=== PATIENT | male | born 1945 | race Caucasian/White ===

== ENCOUNTER 2024-01-12 02:06 | Inpatient (IN) | payer MEDICAID, OTHER ==
[2024-01-12] VITALS (10 sets, daily range): BP systolic 188; BP diastolic 87; PULSE 74–104; RESP 16–32; TEMP 98.1; O2SAT 90–100
[~2024-01-12] VITALS: Ht 167.6 cm; Wt 80.0 kg
[2024-01-12] MEDS: IPRATROPIUM BROM 0.5 MG/2.5ML INH SOL NEB ONE (02:46)
[2024-01-12 02:50] LABS: Basophils # (auto) 0.1 10 ^3/uL (0-0.2); Basophils % (auto) 0.8 % (0.0-2.0); Eosinophils # (auto) 0.8 10 ^3/uL (0-0.8); Eosinophils % (auto) 8.3 % (0.0-7.0); Hematocrit 49.1 % (41.0-53.0); Hemoglobin 16.1 g/dL (13.5-17.5); Lymphocytes # (auto) 1.7 10 ^3/uL (0.4-5.4); Lymphocytes % (auto) 17.5 % (10.0-50.0); Mean Corpuscular Hemoglobin 31.9 pg (28.0-32.0); Mean Corpuscular Hgb Conc. 32.9 g/dL (32.0-36.0); Monocytes # (auto) 0.9 10 ^3/uL (0-1.3); Monocytes % (auto) 9.9 % (0.0-12.0); Neutrophils % (auto) 63.5 % (37.0-80.0); Nucleated Red Blood Cells % 0.1 %; Red Blood Cells 5.06 10^6/uL (4.5-5.90); Red Cell Distribution Width 14.7 % (11.8-14.3); White Blood Cell 9.5 10^3/uL (4.4-10.8)
[2024-01-12] MEDS: methylPREDNISolone SOD SUCC 125 MG/2 ML VL IV ONE (03:02)
[2024-01-12 03:05] LABS: Alanine Aminotransferase 42 U/L (7-40); Albumin 4.1 g/dL (3.2-4.8); Alkaline Phosphatase 89 U/L (46-116); Anion Gap 4 (5-15); Aspartate Aminotransferase 49 U/L (13-40); BUN/Creatinine Ratio 11.6 (10.0-20.0); Blood Urea Nitrogen 18 mg/dL (9-23); Calcium 9.6 mg/dL (8.7-10.4); Carbon Dioxide 28 mmol/L (20-30); Chloride 109 mmol/L (98-107); Glucose 182 mg/dL (74-106); Potassium 4.1 mmol/L (3.5-5.1); Sodium 141 mmol/L (136-145)
[2024-01-12 03:06] LABS: Bilirubin, Total 0.4 mg/dL (0.2-1.0); Total Protein 6.6 g/dL (5.7-8.2)
[2024-01-12] MEDS ORDERED: MORPHINE SULFATE INJ 2 MG/ml SYRG IV PRN (04:45)
[2024-01-12] MEDS ORDERED: NITROGLYCERIN 0.4 MG SL TAB SL PRN (04:45)
[2024-01-12] MEDS ORDERED: DEXTROSE (50%) 50ML SYRG IV PRN (05:00)
[2024-01-12] MEDS ORDERED: HYDROcodone-ACET 5/325MG TAB PO PRN (05:00)
[2024-01-12] MEDS ORDERED: hydrALAZINE HCL 20 MG/ML VL IV PRN (05:00)
[2024-01-12] MEDS ORDERED: ACETAMINOPHEN 325 MG TAB PO PRN (05:00)
[2024-01-12] MEDS ORDERED: ONDANSETRON HCL 4 MG/2 ML VIAL IV PRN (05:00)
[2024-01-12] MEDS: FUROSEMIDE 40 MG/4 ML VIAL IV ONE (05:11)
[2024-01-12] MEDS: ATORVASTATIN 20 MG TAB PO SCH (05:12)
[2024-01-12 05:14] LABS: Prothrombin Time 10.6 sec (9.3-11.8)
[2024-01-12] MEDS: METOPROLOL TARTRATE 25 MG TAB PO SCH (05:19)
[2024-01-12] MEDS: HEPARIN SODIUM (PORCINE) 5000 UNITS/ML 1ML VIAL IV ONE (05:20)
[2024-01-12] MEDS: HEPARIN DRIP/D5W 100UNITS/ML 250 ML IV SCH ×2 (05:45→14:01)
[2024-01-12] MEDS: IPRATROPIUM BROM 0.5 MG/2.5ML INH SOL NEB SCH (06:12)
[2024-01-12] MEDS: LEVALBUTEROL HCL 1.25 MG/3 ML NEB NEB SCH (06:12)
[2024-01-12] MEDS: ACCU-CHEK COMFORT CURVE STRIP VI SCH (06:50)
[2024-01-12] MEDS: InsuLIN REG 1unit/0.01ml Soln (100units/ml) SC SCH (06:55)
[2024-01-12 07:58] LABS: Urine Bacteria None Seen /hpf (None Seen)
[2024-01-12 08:05] LABS: Urine Blood Negative /uL (Negative); Urine Clarity Clear (Clear); Urine Color Light-Yellow (Yellow); Urine Protein, UAD 1+ (Negative); Urine Specific Gravity 1.008 (1.001-1.035); Urine Urobilinogen Normal (Negative); Urine WBC <1 /hpf (0 - 3)
[2024-01-12] MEDS: PANTOPRAZOLE 40 MG/10 ML VIAL INJ IV SCH (10:53)
[2024-01-12 11:12] LABS: INR 1.04 (0.9-1.15); Partial Thromboplastin Time 36.1 SEC (24.5-34.5)
[2024-01-12] MEDS: ASPirin-EC 81 mg tab PO ONE (13:30)
[2024-01-12] MEDS: SODIUM CHLORIDE 0.9% 1,000 ML IV SCH (14:11)
[2024-01-12 20:34] LABS: INR 1.1 (0.9-1.15); Partial Thromboplastin Time 50.4 SEC (24.5-34.5); Prothrombin Time 11.6 sec (9.3-11.8)
[2024-01-13] VITALS (29 sets, daily range): BP systolic 111–157; BP diastolic 57–119; PULSE 75–102; RESP 15–35; TEMP 97–99; O2SAT 83–100
[2024-01-13 00:56] LABS: INR 1.1 (0.9-1.15); Prothrombin Time 11.6 sec (9.3-11.8)
[2024-01-13 01:02] LABS: Partial Thromboplastin Time 88.2 SEC (24.5-34.5)
[2024-01-13] MEDS: HEPARIN DRIP/D5W 100UNITS/ML 250 ML IV SCH ×2 (01:15→09:40)
[2024-01-13 08:08] LABS: Basophils # (auto) 0 10 ^3/uL (0-0.2); Basophils % (auto) 0.2 % (0.0-2.0); Eosinophils # (auto) 0 10 ^3/uL (0-0.8); Eosinophils % (auto) 0.2 % (0.0-7.0); Hematocrit 44.7 % (41.0-53.0); Hemoglobin 14.7 g/dL (13.5-17.5); Lymphocytes # (auto) 1.4 10 ^3/uL (0.4-5.4); Mean Corpuscular Hemoglobin 31.7 pg (28.0-32.0); Mean Corpuscular Hgb Conc. 32.9 g/dL (32.0-36.0); Mean Corpuscular Volume 96.6 fL (80.0-100.0); Monocytes # (auto) 1.6 10 ^3/uL (0-1.3); Monocytes % (auto) 10.3 % (0.0-12.0); Neutrophils # (auto) 12.7 10 ^3/uL (1.6-8.6); Neutrophils % (auto) 80.3 % (37.0-80.0); Red Blood Cells 4.62 10^6/uL (4.5-5.90); Red Cell Distribution Width 14.5 % (11.8-14.3); White Blood Cell 15.8 10^3/uL (4.4-10.8)
[2024-01-13 08:16] LABS: Chloride 107 mmol/L (98-107); Potassium 4.5 mmol/L (3.5-5.1); Sodium 141 mmol/L (136-145)
[2024-01-13 08:17] LABS: Anion Gap 7 (5-15); Calcium 9.1 mg/dL (8.5-10.1); Carbon Dioxide 27 mmol/L (20-30)
[2024-01-13 08:22] LABS: BUN/Creatinine Ratio 17.6 (10.0-20.0); Glucose 165 mg/dL (74-106)
[2024-01-13 08:24] LABS: Blood Urea Nitrogen 28 mg/dL (9-23)
[2024-01-13 09:10] LABS: INR 1.08 (0.9-1.15); Prothrombin Time 11.4 sec (9.3-11.8)
[2024-01-13 09:15] LABS: Partial Thromboplastin Time 82.6 SEC (24.5-34.5)
[2024-01-13] MEDS: ASPirin 81 mg TAB PO SCH (10:18)
[2024-01-13 14:55] LABS: INR 1.06 (0.9-1.15); Partial Thromboplastin Time 66.3 SEC (24.5-34.5); Prothrombin Time 11.2 sec (9.3-11.8)
[2024-01-13] MEDS: FUROSEMIDE 40 MG/4 ML VIAL IV SCH (17:10)
[2024-01-13 21:05] LABS: INR 1.07 (0.9-1.15); Prothrombin Time 11.3 sec (9.3-11.8)
[2024-01-13 21:09] LABS: Partial Thromboplastin Time 71.5 SEC (24.5-34.5)
[2024-01-14] VITALS (34 sets, daily range): BP systolic 94–149; BP diastolic 54–87; PULSE 80–143; RESP 10–34; TEMP 97.6–99.3; O2SAT 89–100
[2024-01-14 03:26] LABS: INR 1.08 (0.9-1.15); Prothrombin Time 11.4 sec (9.3-11.8)
[2024-01-14 03:29] LABS: Partial Thromboplastin Time 75.5 SEC (24.5-34.5)
[2024-01-14 05:32] LABS: Basophils # (auto) 0.1 10 ^3/uL (0-0.2); Basophils % (auto) 0.5 % (0.0-2.0); Eosinophils # (auto) 0.6 10 ^3/uL (0-0.8); Eosinophils % (auto) 4.4 % (0.0-7.0); Hematocrit 45.2 % (41.0-53.0); Hemoglobin 15.1 g/dL (13.5-17.5); Lymphocytes # (auto) 1.3 10 ^3/uL (0.4-5.4); Lymphocytes % (auto) 9.4 % (10.0-50.0); Mean Corpuscular Hemoglobin 32.3 pg (28.0-32.0); Mean Corpuscular Hgb Conc. 33.3 g/dL (32.0-36.0); Mean Corpuscular Volume 96.8 fL (80.0-100.0); Monocytes # (auto) 1.8 10 ^3/uL (0-1.3); Neutrophils # (auto) 10.1 10 ^3/uL (1.6-8.6); Neutrophils % (auto) 72.7 % (37.0-80.0); Nucleated Red Blood Cells % 0.1 %; Red Blood Cells 4.67 10^6/uL (4.5-5.90); Red Cell Distribution Width 14.3 % (11.8-14.3); White Blood Cell 13.8 10^3/uL (4.4-10.8)
[2024-01-14 05:56] LABS: Alanine Aminotransferase 30 U/L (7-40); Albumin 3.9 g/dL (3.2-4.8); Alkaline Phosphatase 67 U/L (46-116); Anion Gap 6 (5-15); Aspartate Aminotransferase 27 U/L (13-40); BUN/Creatinine Ratio 16.6 (10.0-20.0); Blood Urea Nitrogen 30 mg/dL (9-23); Calcium 9.4 mg/dL (8.5-10.1); Carbon Dioxide 30 mmol/L (20-30); Chloride 103 mmol/L (98-107); Glucose 155 mg/dL (74-106); Potassium 4.5 mmol/L (3.5-5.1); Sodium 139 mmol/L (136-145)
[2024-01-14 05:57] LABS: Bilirubin, Total 0.7 mg/dL (0.2-1.0); Total Protein 6.2 g/dL (5.7-8.2)
[2024-01-14 09:49] LABS: INR 1.07 (0.9-1.15); Partial Thromboplastin Time 69.8 SEC (24.5-34.5); Prothrombin Time 11.3 sec (9.3-11.8)
[2024-01-14] MEDS: LIDOCAINE 2%HCL (LOCAL ANESTH.) INJ 20ML MDV ONE (16:39)
[2024-01-14] MEDS: ANGIOMAX 250 MG VIAL IV ONE (16:57)
[2024-01-14] MEDS: VERAPAMIL 2.5MG/ML INJ 2ML VIAL IV ONE (16:57)
[2024-01-14] MEDS: SODIUM CHL 0.9% 0 ML ONE (16:58)
[2024-01-14] MEDS: MIDAZOLAM HCL 2MG/2ML 2ml VIAL (1mg/ml) ONE (16:58)
[2024-01-14] MEDS: fentaNYL CITRATE 100 MCG/2 ML VL ONE (16:58)
[2024-01-14] MEDS: IODIXANOL 320MG/ML 100ML BTL IV ONE ×2 (17:28→17:32)
[2024-01-14] MEDS: LIDOCAINE 2%HCL (LOCAL ANESTH.) INJ 10ml MDV ONE (17:32)
[2024-01-15] VITALS (22 sets, daily range): BP systolic 94–166; BP diastolic 54–87; PULSE 79–110; RESP 12–33; TEMP 97.7–100.2; O2SAT 85–100
[2024-01-15 05:38] LABS: Basophils # (auto) 0 10 ^3/uL (0-0.2); Basophils % (auto) 0.3 % (0.0-2.0); Eosinophils # (auto) 0.5 10 ^3/uL (0-0.8); Eosinophils % (auto) 4.1 % (0.0-7.0); Hematocrit 44.3 % (41.0-53.0); Hemoglobin 14.9 g/dL (13.5-17.5); Lymphocytes % (auto) 8.1 % (10.0-50.0); Mean Corpuscular Hemoglobin 32.2 pg (28.0-32.0); Mean Corpuscular Hgb Conc. 33.6 g/dL (32.0-36.0); Mean Corpuscular Volume 95.9 fL (80.0-100.0); Monocytes # (auto) 1.9 10 ^3/uL (0-1.3); Monocytes % (auto) 15.1 % (0.0-12.0); Neutrophils # (auto) 9.2 10 ^3/uL (1.6-8.6); Neutrophils % (auto) 72.4 % (37.0-80.0); Nucleated Red Blood Cells % 0.1 %; Red Blood Cells 4.62 10^6/uL (4.5-5.90); Red Cell Distribution Width 14.4 % (11.8-14.3); White Blood Cell 12.6 10^3/uL (4.4-10.8)
[2024-01-15 05:47] LABS: Chloride 100 mmol/L (98-107); Sodium 138 mmol/L (136-145)
[2024-01-15 05:48] LABS: Anion Gap 8 (5-15); Calcium 9.4 mg/dL (8.7-10.4); Carbon Dioxide 30 mmol/L (20-30)
[2024-01-15 05:53] LABS: BUN/Creatinine Ratio 18.5 (10.0-20.0); Blood Urea Nitrogen 34 mg/dL (9-23); Glucose 147 mg/dL (74-106)
[2024-01-15 05:57] LABS: INR 1.06 (0.9-1.15); Prothrombin Time 11.2 sec (9.3-11.8)
[2024-01-15] MEDS ORDERED: CARVEDILOL 3.125 MG TAB PO SCH (14:30)
[2024-01-15] MEDS ORDERED: SACU1TAB PO (14:46)
[2024-01-15] MEDS ORDERED: ASPI-325 PO (14:46)
[2024-01-15] MEDS ORDERED: MET25T PO (14:46)
[2024-01-15] MEDS ORDERED: ATOR20TA50 PO ×2 (14:55→15:42)
[2024-01-16] VITALS (16 sets, daily range): BP systolic 122–166; BP diastolic 67–87; PULSE 77–111; RESP 14–30; TEMP 37.1; O2SAT 81–99
== END 2024-01-16 13:30 | disposition home health service (06) | DRG 190 ==
LOC: ER 02:06 → EDBD 02:06 → TELE 04:50 → DOU IN ICU 01-13 04:45
PROVIDERS: ADMIT Nurse Practitioner Family; ATTEND Internal Medicine
PROC: 4A023N7 Measurement of Cardiac Sampling and Pressure, Left Heart, Percutaneous Approach (ICD-10-PCS; principal; 2024-01-14)
PROC: B211YZZ Fluoroscopy of Multiple Coronary Arteries using Other Contrast (ICD-10-PCS; 2024-01-14)
PROC: B215YZZ Fluoroscopy of Left Heart using Other Contrast (ICD-10-PCS; 2024-01-14)
DX: I21.4 Non-ST elevation (NSTEMI) myocardial infarction (principal); J96.01 Acute respiratory failure with hypoxia; I50.43 Acute on chronic combined systolic (congestive) and diastolic (congestive) heart failure; N17.9 Acute kidney failure, unspecified; J18.9 Pneumonia, unspecified organism; J44.0 Chronic obstructive pulmonary disease with (acute) lower respiratory infection; I11.0 Hypertensive heart disease with heart failure; J45.901 Unspecified asthma with (acute) exacerbation; I25.10 Atherosclerotic heart disease of native coronary artery without angina pectoris; Z79.82 Long term (current) use of aspirin; Z79.84 Long term (current) use of oral hypoglycemic drugs; Z79.899 Other long term (current) drug therapy; Z87.891 Personal history of nicotine dependence
CPT/HCPCS: 36415; 71045; 71275; 76775; 80048; 80053; 81001; 82962; 83735; 83880; 84484; 85025; 85379; 85610; 85730; 87081; 93005; 93306; 93458; 94640; 96374; 96375; 99152; 99291; A4565; C9113; G0378; J1815; J2001; J2250; Q9967

== ENCOUNTER 2024-01-27 13:12 | Inpatient (IN) | payer MEDICAID ==
[~2024-01-27] VITALS: Ht 172.7 cm; Wt 93.0 kg
[2024-01-27] VITALS (7 sets, daily range): BP systolic 126; BP diastolic 62; PULSE 87–103; RESP 18–24; O2SAT 91–100
[~2024-01-27 13:12] MED LIST: ASPI-325 PO; ATOR20TA50 PO; MET25T PO; SACU1TAB PO
[2024-01-27] MEDS: IPRATROPIUM BROM 0.5 MG/2.5ML INH SOL HHN ONE (14:03)
[2024-01-27] MEDS: ALBUTEROL SULF 2.5 MG/0.5ML(0.5%) NEB SOLN HHN ONE (14:04)
[2024-01-27] MEDS: methylPREDNISolone SOD SUCC 125 MG/2 ML VL IV ONE (14:30)
[2024-01-27 14:41] LABS: Basophils # (auto) 0.1 10 ^3/uL (0-0.2); Basophils % (auto) 0.4 % (0.0-2.0); Eosinophils # (auto) 0.4 10 ^3/uL (0-0.8); Eosinophils % (auto) 1.9 % (0.0-7.0); Hematocrit 40.7 % (41.0-53.0); Hemoglobin 13.3 g/dL (13.5-17.5); Lymphocytes # (auto) 1.1 10 ^3/uL (0.4-5.4); Mean Corpuscular Hemoglobin 31.7 pg (28.0-32.0); Mean Corpuscular Hgb Conc. 32.7 g/dL (32.0-36.0); Monocytes # (auto) 1.5 10 ^3/uL (0-1.3); Monocytes % (auto) 6.7 % (0.0-12.0); Neutrophils # (auto) 18.8 10 ^3/uL (1.6-8.6); Red Cell Distribution Width 14.3 % (11.8-14.3); White Blood Cell 21.8 10^3/uL (4.4-10.8)
[2024-01-27 14:43] LABS: Chloride 100 mmol/L (98-107); Potassium 4.5 mmol/L (3.5-5.1); Sodium 140 mmol/L (136-145)
[2024-01-27 14:45] LABS: Calcium 9.7 mg/dL (8.5-10.1)
[2024-01-27 14:49] LABS: Glucose 197 mg/dL (74-106)
[2024-01-27 14:50] LABS: BUN/Creatinine Ratio 25.2 (10.0-20.0); Blood Urea Nitrogen 34 mg/dL (9-23)
[2024-01-27 15:06] LABS: Anion Gap -0.00001 (5-15); Carbon Dioxide > 40 mmol/L (20-30)
[2024-01-27] MEDS: PIPERACILLIN-TAZOB 3.375GM 100 ML IV ONE (15:24)
[2024-01-27 16:55] LABS: Urine Bacteria None Seen /hpf (None Seen)
[2024-01-27 17:10] LABS: Urine Blood TRACE /uL (Negative); Urine Clarity Clear (Clear); Urine Color Yellow (Yellow); Urine Protein, UAD 1+ (Negative); Urine Specific Gravity 1.025 (1.001-1.035); Urine Urobilinogen Normal (Negative); Urine WBC 20 /hpf (0 - 3); Urine pH 5.5 (5.0-9.0)
[2024-01-27] MEDS: FUROSEMIDE 40 MG/4 ML VIAL IV ONE (17:16)
[2024-01-27 17:42] LABS: Rapid Influenza A Negative (Negative); Rapid Influenza B Negative (Negative)
[2024-01-27 17:43] LABS: COVID19 ANTIGEN SOFIA FIA NEGATIVE (NEGATIVE)
[2024-01-27] MEDS ORDERED: DEXTROSE (50%) 50ML SYRG IV PRN (17:45)
[2024-01-27] MEDS ORDERED: NITROGLYCERIN 0.4 MG SL TAB SL PRN (17:45)
[2024-01-27] MEDS ORDERED: MORPHINE SULFATE INJ 2 MG/ml SYRG IV PRN ×2 (17:45)
[2024-01-27] MEDS ORDERED: HYDROcodone-ACET 5/325MG TAB PO PRN (17:45)
[2024-01-27] MEDS ORDERED: ONDANSETRON HCL 4 MG/2 ML VIAL IV PRN (17:45)
[2024-01-27] MEDS ORDERED: ACETAMINOPHEN 325 MG TAB PO PRN (17:45)
[2024-01-27] MEDS: IPRATROPIUM BROM 0.5 MG/2.5ML INH SOL NEB SCH (18:31)
[2024-01-27] MEDS: ALBUTEROL SULF 2.5 MG/0.5ML(0.5%) NEB SOLN NEB SCH (18:31)
[2024-01-27] MEDS: BUDESONIDE (INHALATION) 0.5 MG/2 ML NEB NEB SCH (18:32)
[2024-01-27] MEDS: ACCU-CHEK COMFORT CURVE STRIP VI SCH (23:21)
[2024-01-27] MEDS: ATORVASTATIN 20 MG TAB PO SCH (23:24)
[2024-01-27] MEDS: METOPROLOL TARTRATE 25 MG TAB PO SCH (23:25)
[2024-01-27] MEDS: InsuLIN REG 1unit/0.01ml Soln (100units/ml) SC SCH (23:29)
[2024-01-28] VITALS (11 sets, daily range): BP systolic 128–156; BP diastolic 51–99; PULSE 55–91; RESP 17–20; TEMP 98.2–98.4; O2SAT 90–98
[2024-01-28 06:25] LABS: Basophils # (auto) 0 10 ^3/uL (0-0.2); Basophils % (auto) 0.1 % (0.0-2.0); Eosinophils # (auto) 0 10 ^3/uL (0-0.8); Hematocrit 34.9 % (41.0-53.0); Hemoglobin 11.5 g/dL (13.5-17.5); Lymphocytes # (auto) 0.9 10 ^3/uL (0.4-5.4); Lymphocytes % (auto) 4.8 % (10.0-50.0); Mean Corpuscular Hemoglobin 31.8 pg (28.0-32.0); Mean Corpuscular Volume 96.4 fL (80.0-100.0); Monocytes # (auto) 0.9 10 ^3/uL (0-1.3); Monocytes % (auto) 5.1 % (0.0-12.0); Neutrophils # (auto) 16.7 10 ^3/uL (1.6-8.6); Red Blood Cells 3.62 10^6/uL (4.5-5.90); Red Cell Distribution Width 14.3 % (11.8-14.3); White Blood Cell 18.6 10^3/uL (4.4-10.8)
[2024-01-28] MEDS: PANTOPRAZOLE 40 MG TAB PO SCH (06:37)
[2024-01-28 06:44] LABS: Alanine Aminotransferase 15 U/L (7-40); Albumin 3.1 g/dL (3.2-4.8); Alkaline Phosphatase 73 U/L (46-116); Anion Gap 4 (5-15); Aspartate Aminotransferase 14 U/L (13-40); BUN/Creatinine Ratio 26.2 (10.0-20.0); Blood Urea Nitrogen 37 mg/dL (9-23); Calcium 9.4 mg/dL (8.7-10.4); Carbon Dioxide 39 mmol/L (20-30); Chloride 100 mmol/L (98-107); Glucose 229 mg/dL (74-106); Potassium 4.7 mmol/L (3.5-5.1); Sodium 143 mmol/L (136-145)
[2024-01-28 06:45] LABS: Bilirubin, Total 0.3 mg/dL (0.2-1.0); Total Protein 5.7 g/dL (5.7-8.2)
[2024-01-28] MEDS: cefTRIAXone 1GM/50ML D5W 50 ML IV SCH (09:12)
[2024-01-28] MEDS: AZITHROMYCIN 500MG/ 250ML 250 ML IV SCH (10:40)
[2024-01-28] MEDS: ENOXAPARIN SOD 30 MG/0.3 ML SYRINGE SC SCH (10:40)
[2024-01-28] MEDS: FUROSEMIDE 20 MG/2 ML VIAL IV SCH (10:40)
[2024-01-28] MEDS: ASPirin-EC 81 mg tab PO SCH (10:41)
[2024-01-28] MEDS: methylPREDNISolone SOD SUCC 40 MG/ML VL IV SCH (12:24)
[2024-01-28 14:48] LABS: Base Excess 7.7 mmol/L (-2.0-2.0)
[2024-01-28] MEDS: SACUBITRIL-VALSARTAN 24mg/26mg TAB PO SCH (22:53)
[2024-01-29] VITALS (17 sets, daily range): BP systolic 97–123; BP diastolic 46–54; PULSE 68–108; RESP 16–28; TEMP 98.1–98.6; O2SAT 90–100
[2024-01-29 06:22] LABS: Basophils # (auto) 0 10 ^3/uL (0-0.2); Basophils % (auto) 0.1 % (0.0-2.0); Eosinophils # (auto) 0 10 ^3/uL (0-0.8); Eosinophils % (auto) 0.2 % (0.0-7.0); Hematocrit 32.7 % (41.0-53.0); Hemoglobin 10.7 g/dL (13.5-17.5); Lymphocytes # (auto) 1.7 10 ^3/uL (0.4-5.4); Lymphocytes % (auto) 8.2 % (10.0-50.0); Mean Corpuscular Hemoglobin 31.9 pg (28.0-32.0); Mean Corpuscular Hgb Conc. 32.9 g/dL (32.0-36.0); Mean Corpuscular Volume 97.2 fL (80.0-100.0); Monocytes # (auto) 1.2 10 ^3/uL (0-1.3); Neutrophils # (auto) 17.6 10 ^3/uL (1.6-8.6); Neutrophils % (auto) 85.5 % (37.0-80.0); Red Blood Cells 3.36 10^6/uL (4.5-5.90); Red Cell Distribution Width 14.3 % (11.8-14.3); White Blood Cell 20.6 10^3/uL (4.4-10.8)
[2024-01-29 06:37] LABS: Calcium 9.3 mg/dL (8.5-10.1); Chloride 102 mmol/L (98-107); Potassium 4.7 mmol/L (3.5-5.1); Sodium 143 mmol/L (136-145)
[2024-01-29 06:38] LABS: Anion Gap 2 (5-15); Carbon Dioxide 39 mmol/L (20-30)
[2024-01-29 06:43] LABS: BUN/Creatinine Ratio 32.6 (10.0-20.0); Blood Urea Nitrogen 44 mg/dL (9-23)
[2024-01-29 06:53] LABS: Glucose 114 mg/dL (74-106)
[2024-01-29] MEDS: FUROSEMIDE 20 MG/2 ML VIAL IV SCH (10:00)
[2024-01-29] MEDS: methylPREDNISolone SOD SUCC 40 MG/ML VL IV ONE (13:21)
[2024-01-29] MEDS: SACUBITRIL-VALSARTAN 24mg/26mg TAB PO SCH (16:30)
[2024-01-30] VITALS (24 sets, daily range): BP systolic 99–154; BP diastolic 48–92; PULSE 51–105; RESP 16–24; TEMP 97.6–98.4; O2SAT 93–100
[2024-01-30 07:25] LABS: Anion Gap 1 (5-15); Carbon Dioxide 37 mmol/L (20-30); Chloride 101 mmol/L (98-107); Potassium 4.8 mmol/L (3.5-5.1); Sodium 139 mmol/L (136-145)
[2024-01-30 07:31] LABS: BUN/Creatinine Ratio 49.1 (10.0-20.0); Basophils # (auto) 0 10 ^3/uL (0-0.2); Blood Urea Nitrogen 79 mg/dL (9-23); Eosinophils # (auto) 0 10 ^3/uL (0-0.8); Hematocrit 26.7 % (41.0-53.0); Hemoglobin 8.8 g/dL (13.5-17.5); Lymphocytes # (auto) 1.7 10 ^3/uL (0.4-5.4); Lymphocytes % (auto) 8.2 % (10.0-50.0); Mean Corpuscular Hemoglobin 31.9 pg (28.0-32.0); Mean Corpuscular Volume 96.5 fL (80.0-100.0); Monocytes # (auto) 1.1 10 ^3/uL (0-1.3); Monocytes % (auto) 5.5 % (0.0-12.0); Neutrophils # (auto) 17.5 10 ^3/uL (1.6-8.6); Neutrophils % (auto) 86.3 % (37.0-80.0); Red Blood Cells 2.77 10^6/uL (4.5-5.90); White Blood Cell 20.3 10^3/uL (4.4-10.8)
[2024-01-30 07:32] LABS: Glucose 214 mg/dL (74-106); Magnesium 2.1 mg/dL (1.6-2.6)
[2024-01-30] MEDS: ENOXAPARIN SOD 40 MG/0.4 ML SYRINGE SC SCH (08:47)
[2024-01-30] MEDS: FUROSEMIDE 20 MG/2 ML VIAL IV SCH (09:15)
[2024-01-30 11:29] LABS: Triglycerides 147 mg/dL (< 150)
[2024-01-30 11:30] LABS: LDL Cholesterol 38 mg/dL (< 100)
[2024-01-30 11:31] LABS: Cholesterol 94 mg/dL (< 200); HDL Cholesterol 29 mg/dL (40-59)
[2024-01-30] MEDS: AMIODARONE HCL 200 MG TAB PO ONE (12:25)
[2024-01-30 12:42] LABS: Urine Bacteria None Seen /hpf (None Seen)
[2024-01-30 13:43] LABS: Urine Amorphous Crystal FEW /hpf (None Seen); Urine Blood Negative /uL (Negative); Urine Clarity Clear (Clear); Urine Color Light-Yellow (Yellow); Urine Protein, UAD Negative (Negative); Urine Specific Gravity 1.018 (1.001-1.035); Urine Urobilinogen Normal (Negative); Urine WBC 7 /hpf (0 - 3); Urine pH 5.5 (5.0-9.0)
[2024-01-30 15:55] LABS: Hematocrit 27.4 % (41.0-53.0); Hemoglobin 8.9 g/dL (13.5-17.5)
[2024-01-30] MEDS: INSULIN LANTUS (GLARGINE) 1 /0.01ml (100units/ml) SC SCH (20:00)
[2024-01-30] MEDS: AMIODARONE HCL 200 MG TAB PO SCH (21:15)
[2024-01-31] VITALS (14 sets, daily range): BP systolic 113–129; BP diastolic 43–95; PULSE 70–94; RESP 14–22; TEMP 97.4–97.9; O2SAT 90–100
[2024-01-31 06:03] LABS: Basophils # (auto) 0 10 ^3/uL (0-0.2); Basophils % (auto) 0.1 % (0.0-2.0); Eosinophils # (auto) 0 10 ^3/uL (0-0.8); Eosinophils % (auto) 0.2 % (0.0-7.0); Hemoglobin 8.5 g/dL (13.5-17.5); Lymphocytes # (auto) 1.7 10 ^3/uL (0.4-5.4); Lymphocytes % (auto) 8.9 % (10.0-50.0); Mean Corpuscular Hemoglobin 32.3 pg (28.0-32.0); Mean Corpuscular Hgb Conc. 33.8 g/dL (32.0-36.0); Mean Corpuscular Volume 95.6 fL (80.0-100.0); Monocytes # (auto) 1.5 10 ^3/uL (0-1.3); Monocytes % (auto) 7.7 % (0.0-12.0); Neutrophils # (auto) 15.8 10 ^3/uL (1.6-8.6); Neutrophils % (auto) 83.1 % (37.0-80.0); Red Blood Cells 2.62 10^6/uL (4.5-5.90); Red Cell Distribution Width 14.1 % (11.8-14.3)
[2024-01-31 06:16] LABS: Anion Gap 0 (5-15); Calcium 9.2 mg/dL (8.7-10.4); Carbon Dioxide 36 mmol/L (20-30); Chloride 104 mmol/L (98-107); Potassium 4.9 mmol/L (3.5-5.1); Sodium 140 mmol/L (136-145)
[2024-01-31 06:22] LABS: BUN/Creatinine Ratio 37.2 (10.0-20.0); Glucose 194 mg/dL (74-106)
[2024-01-31 06:23] LABS: Blood Urea Nitrogen 64 mg/dL (9-23); Magnesium 2.3 mg/dL (1.6-2.6)
[2024-01-31 12:39] LABS: Base Excess 6.4 mmol/L (-2.0-2.0)
[2024-01-31] MEDS: methylPREDNISolone SOD SUCC 40 MG/ML VL IV ONE (13:31)
[2024-01-31] MEDS: InsuLIN REG 1unit/0.01ml Soln (100units/ml) SC SCH ×2 (17:00→21:31)
[2024-02-01] VITALS (16 sets, daily range): BP systolic 110–133; BP diastolic 44–73; PULSE 71–89; RESP 12–21; TEMP 97.5–98.3; O2SAT 94–100
[2024-02-01] MEDS: INSULIN LANTUS (GLARGINE) 1 /0.01ml (100units/ml) SC SCH (06:28)
[2024-02-01 06:43] LABS: Chloride 104 mmol/L (98-107); Potassium 5.3 mmol/L (3.5-5.1); Sodium 139 mmol/L (136-145)
[2024-02-01 06:44] LABS: Anion Gap 3 (5-15); Carbon Dioxide 32 mmol/L (20-30)
[2024-02-01 06:45] LABS: Calcium 9.3 mg/dL (8.5-10.1)
[2024-02-01 06:49] LABS: Glucose 145 mg/dL (74-106)
[2024-02-01 06:50] LABS: BUN/Creatinine Ratio 42.6 (10.0-20.0); Blood Urea Nitrogen 66 mg/dL (9-23)
[2024-02-01 09:12] LABS: Hematocrit 29.3 % (41.0-53.0); Hemoglobin 9.4 g/dL (13.5-17.5); Mean Corpuscular Hemoglobin 31.6 pg (28.0-32.0); Mean Corpuscular Hgb Conc. 31.9 g/dL (32.0-36.0); Red Blood Cells 2.96 10^6/uL (4.5-5.90); Red Cell Distribution Width 14.8 % (11.8-14.3)
[2024-02-01 09:17] LABS: Basophils % (manual) 0 (0.0-2.0); Blast Cells 0; Eosinophils % (manual) 0 (0-7); Metamyelocytes % 0; Myelocytes % 0; Promyelocytes % 0; Reactive Lymphocytes 0
[2024-02-01 09:18] LABS: White Blood Cell 31.3 10^3/uL (4.4-10.8)
[2024-02-01 09:25] LABS: Band Neutrophils % (manual) 1
[2024-02-01 09:26] LABS: Lymphocytes % (manual) 7 (10.0-50.0); Monocytes % (manual) 5 (0-12); Platelet Estimate Adequate; RBC Morphology Normal
[2024-02-01] MEDS ORDERED: DEXTROSE (50%) 50ML SYRG IV PRN (12:15)
[2024-02-01] MEDS: DEXTROSE (50%) 50ML SYRG IV ONE (14:00)
[2024-02-01] MEDS: InsuLIN REG 1unit/0.01ml Soln (100units/ml) IV ONE (14:07)
[2024-02-01] MEDS: ACCU-CHEK COMFORT CURVE STRIP VI SCH (18:12)
[2024-02-01] MEDS: InsuLIN REG 1unit/0.01ml Soln (100units/ml) SC SCH (18:14)
[2024-02-01 20:25] LABS: INR 1.03 (0.9-1.15); Partial Thromboplastin Time 20.7 SEC (24.5-34.5); Prothrombin Time 10.9 sec (9.3-11.8)
[2024-02-02] VITALS (19 sets, daily range): BP systolic 111–142; BP diastolic 44–58; PULSE 65–100; RESP 16–19; TEMP 97.3–98; O2SAT 94–100
[2024-02-02] MEDS: OMNIPAQUE 12mg/ml 500ml ORAL SOLUTION PO ONE (08:28)
[2024-02-02 10:44] LABS: Basophils # (auto) 0 10 ^3/uL (0-0.2); Basophils % (auto) 0.2 % (0.0-2.0); Eosinophils # (auto) 0.8 10 ^3/uL (0-0.8); Eosinophils % (auto) 4.4 % (0.0-7.0); Hematocrit 28.9 % (41.0-53.0); Hemoglobin 9.5 g/dL (13.5-17.5); Lymphocytes # (auto) 2.9 10 ^3/uL (0.4-5.4); Lymphocytes % (auto) 16.1 % (10.0-50.0); Mean Corpuscular Hemoglobin 32.3 pg (28.0-32.0); Mean Corpuscular Hgb Conc. 32.7 g/dL (32.0-36.0); Mean Corpuscular Volume 98.6 fL (80.0-100.0); Monocytes # (auto) 1.7 10 ^3/uL (0-1.3); Monocytes % (auto) 9.1 % (0.0-12.0); Neutrophils # (auto) 12.8 10 ^3/uL (1.6-8.6); Neutrophils % (auto) 70.2 % (37.0-80.0); Red Blood Cells 2.93 10^6/uL (4.5-5.90); Red Cell Distribution Width 14.7 % (11.8-14.3); White Blood Cell 18.2 10^3/uL (4.4-10.8)
[2024-02-02 11:35] LABS: Anion Gap 2 (5-15); Calcium 9.4 mg/dL (8.5-10.1); Carbon Dioxide 37 mmol/L (20-30); Chloride 100 mmol/L (98-107); Potassium 4.5 mmol/L (3.5-5.1); Sodium 139 mmol/L (136-145)
[2024-02-02 11:40] LABS: Glucose 121 mg/dL (74-106)
[2024-02-02 11:41] LABS: BUN/Creatinine Ratio 30.3 (10.0-20.0); Magnesium 2.4 mg/dL (1.6-2.6)
[2024-02-02 11:43] LABS: Blood Urea Nitrogen 53 mg/dL (9-23)
[2024-02-02] MEDS: PANTOPRAZOLE 40 MG TAB PO SCH (12:00)
[2024-02-02 12:04] LABS: Lactic Acid w/Reflex 2.2 mmol/L (0.4-2.0)
[2024-02-03] VITALS (20 sets, daily range): BP systolic 120–145; BP diastolic 45–68; PULSE 70–108; RESP 16–22; TEMP 97.5–98.2; O2SAT 94–100
[2024-02-03 06:01] LABS: Basophils # (auto) 0 10 ^3/uL (0-0.2); Basophils % (auto) 0.1 % (0.0-2.0); Eosinophils # (auto) 0.6 10 ^3/uL (0-0.8); Eosinophils % (auto) 4.6 % (0.0-7.0); Hematocrit 24.6 % (41.0-53.0); Hemoglobin 8.2 g/dL (13.5-17.5); Lymphocytes % (auto) 14.6 % (10.0-50.0); Mean Corpuscular Hemoglobin 32.5 pg (28.0-32.0); Mean Corpuscular Hgb Conc. 33.3 g/dL (32.0-36.0); Mean Corpuscular Volume 97.6 fL (80.0-100.0); Monocytes # (auto) 1.3 10 ^3/uL (0-1.3); Monocytes % (auto) 9.4 % (0.0-12.0); Neutrophils # (auto) 9.8 10 ^3/uL (1.6-8.6); Neutrophils % (auto) 71.3 % (37.0-80.0); Nucleated Red Blood Cells % 0.1 %; Red Blood Cells 2.52 10^6/uL (4.5-5.90); Red Cell Distribution Width 14.8 % (11.8-14.3); White Blood Cell 13.8 10^3/uL (4.4-10.8)
[2024-02-03 06:20] LABS: Alanine Aminotransferase 21 U/L (7-40); Albumin 3.2 g/dL (3.2-4.8); Alkaline Phosphatase 66 U/L (46-116); Anion Gap 0 (5-15); BUN/Creatinine Ratio 27.2 (10.0-20.0); Blood Urea Nitrogen 47 mg/dL (9-23); Calcium 9.2 mg/dL (8.5-10.1); Carbon Dioxide 38 mmol/L (20-30); Chloride 100 mmol/L (98-107); Glucose 107 mg/dL (74-106); Potassium 4.8 mmol/L (3.5-5.1); Sodium 138 mmol/L (136-145)
[2024-02-03 06:21] LABS: Aspartate Aminotransferase 19 U/L (13-40); Bilirubin, Total 0.4 mg/dL (0.2-1.0); Total Protein 5.1 g/dL (5.7-8.2)
[2024-02-03] MEDS ORDERED: UMEC1AER IN (12:03)
[2024-02-03] MEDS ORDERED: PANT40T PO (13:00)
[2024-02-04] VITALS (17 sets, daily range): BP systolic 124–146; BP diastolic 55–90; PULSE 8–88; RESP 16–20; TEMP 97.2–98.3; O2SAT 94–100
[2024-02-04 06:37] LABS: Alanine Aminotransferase 21 U/L (7-40); Albumin 3.3 g/dL (3.2-4.8); Alkaline Phosphatase 63 U/L (46-116); Aspartate Aminotransferase 21 U/L (13-40); BUN/Creatinine Ratio 18.7 (10.0-20.0); Calcium 9.1 mg/dL (8.7-10.4); Carbon Dioxide 38 mmol/L (20-30); Chloride 104 mmol/L (98-107); Glucose 57 mg/dL (74-106); Potassium 4.1 mmol/L (3.5-5.1); Sodium 141 mmol/L (136-145)
[2024-02-04 06:38] LABS: Bilirubin, Total 0.3 mg/dL (0.2-1.0); Total Protein 5.4 g/dL (5.7-8.2)
[2024-02-04 06:39] LABS: Anion Gap -1 (5-15); Blood Urea Nitrogen 32 mg/dL (9-23)
[2024-02-04 06:42] LABS: Basophils # (auto) 0 10 ^3/uL (0-0.2); Basophils % (auto) 0.1 % (0.0-2.0); Eosinophils # (auto) 0.8 10 ^3/uL (0-0.8); Eosinophils % (auto) 6.5 % (0.0-7.0); Hematocrit 24.3 % (41.0-53.0); Hemoglobin 8.1 g/dL (13.5-17.5); Lymphocytes # (auto) 1.6 10 ^3/uL (0.4-5.4); Lymphocytes % (auto) 13.1 % (10.0-50.0); Mean Corpuscular Hemoglobin 32.9 pg (28.0-32.0); Mean Corpuscular Hgb Conc. 33.4 g/dL (32.0-36.0); Mean Corpuscular Volume 98.5 fL (80.0-100.0); Monocytes # (auto) 1.2 10 ^3/uL (0-1.3); Monocytes % (auto) 9.5 % (0.0-12.0); Neutrophils # (auto) 8.8 10 ^3/uL (1.6-8.6); Neutrophils % (auto) 70.8 % (37.0-80.0); Red Blood Cells 2.47 10^6/uL (4.5-5.90); Red Cell Distribution Width 15.7 % (11.8-14.3); White Blood Cell 12.5 10^3/uL (4.4-10.8)
[2024-02-04] MEDS ORDERED: KETAMINE 50mg/ML 1ml syringe ONE (12:38)
[2024-02-04] MEDS ORDERED: MIDAZOLAM HCL 2MG/2ML 2ml VIAL (1mg/ml) ONE (12:38)
[2024-02-04] MEDS: SUCRALFATE 1 GM/10 ML ORAL SUSP GT SCH (16:51)
[2024-02-05] VITALS (10 sets, daily range): BP systolic 118–133; BP diastolic 48–73; PULSE 77–88; RESP 15–20; TEMP 97.1–98.3; O2SAT 93–100
[2024-02-05 06:35] LABS: Basophils # (auto) 0 10 ^3/uL (0-0.2); Basophils % (auto) 0.2 % (0.0-2.0); Eosinophils # (auto) 0.5 10 ^3/uL (0-0.8); Mean Corpuscular Volume 99.2 fL (80.0-100.0); White Blood Cell 8.7 10^3/uL (4.4-10.8)
[2024-02-05 06:37] LABS: Anion Gap 2 (5-15); Carbon Dioxide 35 mmol/L (20-30); Chloride 104 mmol/L (98-107); Potassium 4.3 mmol/L (3.5-5.1); Sodium 141 mmol/L (136-145)
[2024-02-05 06:38] LABS: Calcium 8.6 mg/dL (8.5-10.1)
[2024-02-05 06:39] LABS: Eosinophils % (auto) 6.2 % (0.0-7.0); Hematocrit 22.1 % (41.0-53.0); Hemoglobin 7.6 g/dL (13.5-17.5); Lymphocytes # (auto) 1.5 10 ^3/uL (0.4-5.4); Lymphocytes % (auto) 16.9 % (10.0-50.0); Mean Corpuscular Hgb Conc. 34.3 g/dL (32.0-36.0); Monocytes # (auto) 0.8 10 ^3/uL (0-1.3); Monocytes % (auto) 8.7 % (0.0-12.0); Neutrophils # (auto) 5.9 10 ^3/uL (1.6-8.6); Red Blood Cells 2.23 10^6/uL (4.5-5.90); Red Cell Distribution Width 15.6 % (11.8-14.3)
[2024-02-05 06:43] LABS: BUN/Creatinine Ratio 13.2 (10.0-20.0); Blood Urea Nitrogen 20 mg/dL (9-23); Glucose 123 mg/dL (74-106)
[2024-02-05] MEDS: DOCUSATE SOD 100 MG CAP PO PRN (09:33)
[2024-02-05] MEDS: IRON SUCROSE COMPLEX 100 ML IV SCH (11:15)
[2024-02-05] MEDS ORDERED: FERR-7 PO (12:36)
== END 2024-02-05 19:40 | disposition home or self-care (01) | DRG 133 ==
LOC: ER 13:12 → TELE 17:39 → TELE-E-ADS 01-28 09:34
PROVIDERS: ADMIT Internal Medicine Pulmonary Disease; ATTEND Internal Medicine Pulmonary Disease
PROC: 05HC33Z Insertion of Infusion Device into Left Basilic Vein, Percutaneous Approach (ICD-10-PCS; principal; 2024-02-02)
PROC: B54NZZA Ultrasonography of Left Upper Extremity Veins, Guidance (ICD-10-PCS; 2024-02-02)
PROC: 0DB98ZX Excision of Duodenum, Via Natural or Artificial Opening Endoscopic, Diagnostic (ICD-10-PCS; 2024-02-04)
PROC: 0DB68ZX Excision of Stomach, Via Natural or Artificial Opening Endoscopic, Diagnostic (ICD-10-PCS; 2024-02-04)
PROC: 0DB48ZX Excision of Esophagogastric Junction, Via Natural or Artificial Opening Endoscopic, Diagnostic (ICD-10-PCS; 2024-02-04)
DX: J96.01 Acute respiratory failure with hypoxia (principal); N17.0 Acute kidney failure with tubular necrosis; R57.1 Hypovolemic shock; I50.43 Acute on chronic combined systolic (congestive) and diastolic (congestive) heart failure; K22.11 Ulcer of esophagus with bleeding; J15.69 Pneumonia due to other Gram-negative bacteria; K29.71 Gastritis, unspecified, with bleeding; E87.4 Mixed disorder of acid-base balance; J15.9 Unspecified bacterial pneumonia; I13.0 Hypertensive heart and chronic kidney disease with heart failure and stage 1 through stage 4 chronic kidney disease, or unspecified chronic kidney disease; E11.22 Type 2 diabetes mellitus with diabetic chronic kidney disease; D50.0 Iron deficiency anemia secondary to blood loss (chronic); J44.1 Chronic obstructive pulmonary disease with (acute) exacerbation; N30.00 Acute cystitis without hematuria; Z20.822 Contact with and (suspected) exposure to COVID-19; E78.5 Hyperlipidemia, unspecified; I48.0 Paroxysmal atrial fibrillation; I42.8 Other cardiomyopathies; N18.9 Chronic kidney disease, unspecified; E66.9 Obesity, unspecified; I08.1 Rheumatic disorders of both mitral and tricuspid valves; E87.5 Hyperkalemia; N26.1 Atrophy of kidney (terminal); N20.0 Calculus of kidney; K44.9 Diaphragmatic hernia without obstruction or gangrene; K31.9 Disease of stomach and duodenum, unspecified; Z85.46 Personal history of malignant neoplasm of prostate; Z87.891 Personal history of nicotine dependence; Z90.49 Acquired absence of other specified parts of digestive tract; Z98.61 Coronary angioplasty status; Z99.81 Dependence on supplemental oxygen; Z68.31 Body mass index [BMI] 31.0-31.9, adult; Z79.84 Long term (current) use of oral hypoglycemic drugs
CPT/HCPCS: 36415; 36600; 71045; 71250; 74176; 80048; 80053; 80061; 81001; 82270; 82805; 82962; 83036; 83605; 83735; 83880; 84443; 85007; 85014; 85018; 85025; 85027; 85379; 85610; 85730; 86850; 86900; 86901; 87040; 87081; 87086; 87426; 87804; 93005; 93970; 94640; 94644; 96365; 96375; 99291; G0378; J1756; J1815; J2250; J2543

== ENCOUNTER 2024-04-09 21:48 | Inpatient (IN) | payer MEDICAID ==
[~2024-04-09] VITALS: Ht 172.7 cm; Wt 84.8 kg
[~2024-04-09 21:48] MED LIST changes: +ATOR40TA52 PO; +FERR-7 PO; +FLUT1INH28 INH; -MET25T PO; +PANT40T PO; +UMEC1AER IN
[2024-04-09 22:53] LABS: Basophils # (auto) 0.1 10 ^3/uL (0-0.2); Basophils % (auto) 0.9 % (0.0-2.0); Eosinophils # (auto) 1.2 10 ^3/uL (0-0.8); Eosinophils % (auto) 11.4 % (0.0-7.0); Hematocrit 37.4 % (41.0-53.0); Hemoglobin 12.5 g/dL (13.5-17.5); Lymphocytes # (auto) 1.7 10 ^3/uL (0.4-5.4); Lymphocytes % (auto) 16.1 % (10.0-50.0); Mean Corpuscular Hemoglobin 30.7 pg (28.0-32.0); Mean Corpuscular Hgb Conc. 33.5 g/dL (32.0-36.0); Mean Corpuscular Volume 91.7 fL (80.0-100.0); Monocytes # (auto) 1.2 10 ^3/uL (0-1.3); Monocytes % (auto) 11.4 % (0.0-12.0); Neutrophils # (auto) 6.5 10 ^3/uL (1.6-8.6); Neutrophils % (auto) 60.2 % (37.0-80.0); Platelet Count (auto) 252 10^3/uL (140-450); Red Blood Cells 4.07 10^6/uL (4.5-5.90); Red Cell Distribution Width 14.4 % (11.8-14.3); White Blood Cell 10.8 10^3/uL (4.4-10.8)
[2024-04-09 23:12] LABS: Albumin 4.2 g/dL (3.2-4.8); Alkaline Phosphatase 91 U/L (46-116); Anion Gap 5 (5-15); Aspartate Aminotransferase 13 U/L (13-40); BUN/Creatinine Ratio 12.4 (10.0-20.0); Bilirubin, Total 0.4 mg/dL (0.2-1.0); Blood Urea Nitrogen 20 mg/dL (9-23); Calcium 9.8 mg/dL (8.7-10.4); Carbon Dioxide 30 mmol/L (20-30); Chloride 105 mmol/L (98-107); Glucose 166 mg/dL (74-106); Sodium 140 mmol/L (136-145); Total Protein 7.1 g/dL (5.7-8.2)
[2024-04-09 23:19] LABS: Alanine Aminotransferase 13 U/L (7-40)
[2024-04-09 23:40] VITALS: PULSE 67; O2SAT 100
[2024-04-10] MEDS: HYDROcodone-ACET 5/325MG TAB PO ONE (00:45)
[2024-04-10] MEDS: FUROSEMIDE 40 MG/4 ML VIAL IV ONE (00:46)
[2024-04-10] MEDS: ASPirin-EC 325mg tab PO ONE (01:22)
[2024-04-10] MEDS ORDERED: DOCUSATE SOD 100 MG CAP PO PRN (01:45)
[2024-04-10] MEDS ORDERED: DEXTROSE (50%) 50ML SYRG IV PRN (01:45)
[2024-04-10] MEDS ORDERED: ACETAMINOPHEN 325 MG TAB PO PRN (01:45)
[2024-04-10] MEDS ORDERED: ONDANSETRON HCL 4 MG/2 ML VIAL IV PRN (01:45)
[2024-04-10] MEDS: hydrALAZINE HCL 20 MG/ML VL IV PRN (03:08)
[2024-04-10] MEDS ORDERED: NITROGLYCERIN 0.4 MG SL TAB SL PRN (04:15)
[2024-04-10] MEDS ORDERED: MORPHINE SULFATE INJ 2 MG/ml SYRG IV PRN (04:15)
[2024-04-10] MEDS: SODIUM CHLOR 0.9% PF (SALINE LOCK) 10ML VIAL/SYR IV SCH (06:00)
[2024-04-10 06:08] LABS: Basophils # (auto) 0.1 10 ^3/uL (0-0.2); Basophils % (auto) 0.6 % (0.0-2.0); Eosinophils # (auto) 1.4 10 ^3/uL (0-0.8); Hematocrit 42.4 % (41.0-53.0); Hemoglobin 14.1 g/dL (13.5-17.5); Lymphocytes # (auto) 1.8 10 ^3/uL (0.4-5.4); Mean Corpuscular Hemoglobin 31.1 pg (28.0-32.0); Mean Corpuscular Hgb Conc. 33.3 g/dL (32.0-36.0); Mean Corpuscular Volume 93.3 fL (80.0-100.0); Monocytes # (auto) 1.3 10 ^3/uL (0-1.3); Monocytes % (auto) 11.4 % (0.0-12.0); Neutrophils # (auto) 6.5 10 ^3/uL (1.6-8.6); Platelet Count (auto) 243 10^3/uL (140-450); Red Blood Cells 4.54 10^6/uL (4.5-5.90); Red Cell Distribution Width 14.2 % (11.8-14.3); White Blood Cell 11.1 10^3/uL (4.4-10.8)
[2024-04-10 06:25] LABS: Alanine Aminotransferase 12 U/L (7-40); Albumin 4.4 g/dL (3.2-4.8); Alkaline Phosphatase 92 U/L (46-116); Anion Gap 10 (5-15); Aspartate Aminotransferase 17 U/L (13-40); BUN/Creatinine Ratio 10.7 (10.0-20.0); Blood Urea Nitrogen 16 mg/dL (9-23); Calcium 10.1 mg/dL (8.7-10.4); Carbon Dioxide 26 mmol/L (20-30); Chloride 103 mmol/L (98-107); Glucose 144 mg/dL (74-106); Potassium 3.6 mmol/L (3.5-5.1); Sodium 139 mmol/L (136-145)
[2024-04-10 06:26] LABS: Bilirubin, Total 0.5 mg/dL (0.2-1.0); Total Protein 7.5 g/dL (5.7-8.2)
[2024-04-10 07:35] VITALS: PULSE 73; RESP 21; O2SAT 98
[2024-04-10] MEDS: ACCU-CHEK COMFORT CURVE STRIP VI SCH (07:36)
[2024-04-10] MEDS: InsuLIN REG 1unit/0.01ml Soln (100units/ml) SC SCH ×2 (07:42→21:42)
[2024-04-10] MEDS: HYDROcodone-ACET 5/325MG TAB PO PRN (08:21)
[2024-04-10] MEDS: CARVEDILOL 3.125 MG TAB PO SCH (09:36)
[2024-04-10] MEDS: ASPirin 81 mg TAB PO SCH (09:36)
[2024-04-10] MEDS: FUROSEMIDE 40 MG/4 ML VIAL IV SCH (09:36)
[2024-04-10] MEDS: FAMOTIDINE (10MG/ML) 2ML VL IV SCH (09:36)
[2024-04-10] MEDS ORDERED: LIDO1.8P (13:39)
[2024-04-10] MEDS ORDERED: ASPI81TA28 PO (13:39)
[2024-04-10] MEDS ORDERED: METO25TA93 PO (13:39)
[2024-04-10] MEDS ORDERED: FERR325T20 PO (13:39)
[2024-04-10] MEDS ORDERED: FURO20TA4 PO (13:39)
[2024-04-10 17:00] VITALS: BP 140/70; PULSE 40; RESP 18; TEMP 97.8; O2SAT 99
[2024-04-10 20:00] VITALS: PULSE 59; PULSE 64; RESP 18; O2SAT 91
[2024-04-10] MEDS: ATORVASTATIN 20 MG TAB PO SCH (21:43)
[2024-04-10 22:00] VITALS: BP 115/73; PULSE 64; RESP 18; TEMP 98.2; O2SAT 91
[2024-04-11] VITALS (9 sets, daily range): BP systolic 119–157; BP diastolic 58–83; PULSE 59–86; RESP 18–20; TEMP 97.9–98.1; O2SAT 91–100
[2024-04-11 07:04] LABS: Basophils # (auto) 0.1 10 ^3/uL (0-0.2); Eosinophils # (auto) 1.4 10 ^3/uL (0-0.8); Eosinophils % (auto) 14.9 % (0.0-7.0); Hematocrit 37.9 % (41.0-53.0); Hemoglobin 12.7 g/dL (13.5-17.5); Lymphocytes # (auto) 1.7 10 ^3/uL (0.4-5.4); Lymphocytes % (auto) 18.9 % (10.0-50.0); Mean Corpuscular Hemoglobin 30.8 pg (28.0-32.0); Mean Corpuscular Hgb Conc. 33.6 g/dL (32.0-36.0); Mean Corpuscular Volume 91.6 fL (80.0-100.0); Monocytes # (auto) 1.1 10 ^3/uL (0-1.3); Monocytes % (auto) 11.5 % (0.0-12.0); Neutrophils % (auto) 53.7 % (37.0-80.0); Platelet Count (auto) 262 10^3/uL (140-450); Red Blood Cells 4.13 10^6/uL (4.5-5.90); Red Cell Distribution Width 14.3 % (11.8-14.3); White Blood Cell 9.2 10^3/uL (4.4-10.8)
[2024-04-11 07:21] LABS: Alanine Aminotransferase 10 U/L (7-40); Albumin 4.1 g/dL (3.2-4.8); Alkaline Phosphatase 80 U/L (46-116); Anion Gap 8 (5-15); Aspartate Aminotransferase 11 U/L (13-40); BUN/Creatinine Ratio 14.5 (10.0-20.0); Bilirubin, Total 0.6 mg/dL (0.2-1.0); Calcium 9.8 mg/dL (8.7-10.4); Carbon Dioxide 30 mmol/L (20-30); Chloride 102 mmol/L (98-107); Glucose 181 mg/dL (74-106); Potassium 3.9 mmol/L (3.5-5.1); Sodium 140 mmol/L (136-145)
[2024-04-11 07:22] LABS: Total Protein 6.7 g/dL (5.7-8.2)
[2024-04-11 07:40] LABS: Blood Urea Nitrogen 28 mg/dL (9-23)
[2024-04-11] MEDS ORDERED: AMLO1TAB22 PO (16:36)
[2024-04-11] MEDS ORDERED: LOSA-534 PO (16:36)
[2024-04-12] VITALS (8 sets, daily range): BP systolic 128–154; BP diastolic 59–80; PULSE 57–71; RESP 16–19; TEMP 97.3–98.7; O2SAT 91–100
[2024-04-12 08:57] LABS: Basophils # (auto) 0.1 10 ^3/uL (0-0.2); Basophils % (auto) 0.6 % (0.0-2.0); Eosinophils # (auto) 1.4 10 ^3/uL (0-0.8); Eosinophils % (auto) 13.3 % (0.0-7.0); Hematocrit 40.1 % (41.0-53.0); Hemoglobin 13.4 g/dL (13.5-17.5); Lymphocytes # (auto) 1.9 10 ^3/uL (0.4-5.4); Lymphocytes % (auto) 18.9 % (10.0-50.0); Mean Corpuscular Hemoglobin 31.1 pg (28.0-32.0); Mean Corpuscular Hgb Conc. 33.4 g/dL (32.0-36.0); Mean Corpuscular Volume 93.1 fL (80.0-100.0); Monocytes # (auto) 1.1 10 ^3/uL (0-1.3); Monocytes % (auto) 10.9 % (0.0-12.0); Neutrophils # (auto) 5.8 10 ^3/uL (1.6-8.6); Neutrophils % (auto) 56.3 % (37.0-80.0); Platelet Count (auto) 292 10^3/uL (140-450); Red Cell Distribution Width 14.1 % (11.8-14.3); White Blood Cell 10.2 10^3/uL (4.4-10.8)
[2024-04-12 09:13] LABS: Anion Gap 8 (5-15); Carbon Dioxide 27 mmol/L (20-30); Chloride 105 mmol/L (98-107); Potassium 3.8 mmol/L (3.5-5.1); Sodium 140 mmol/L (136-145)
[2024-04-12 09:19] LABS: BUN/Creatinine Ratio 16.6 (10.0-20.0); Blood Urea Nitrogen 29 mg/dL (9-23); Glucose 118 mg/dL (74-106)
[2024-04-13 01:00] VITALS: BP 146/66; PULSE 55; RESP 19; TEMP 98.2; O2SAT 95
[2024-04-13 05:00] VITALS: BP 139/61; PULSE 53; RESP 19; TEMP 97.6; O2SAT 98
[2024-04-13 08:00] VITALS: PULSE 68
[2024-04-13 08:16] VITALS: BP 138/76; PULSE 74; RESP 19; TEMP 97.4; O2SAT 93
[2024-04-13] MEDS ORDERED: POTA-36 PO (11:00)
[2024-04-13] MEDS ORDERED: ATOR20TA PO (11:00)
[2024-04-13] MEDS ORDERED: FURO1TAB31 PO (11:00)
[2024-04-13] MEDS ORDERED: CARV-214 PO (11:00)
[2024-04-13] MEDS ORDERED: ASPI-628 PO (11:00)
[2024-04-13 12:35] LABS: Base Excess 3.1 mmol/L (-2.0-3.0)
[2024-04-13 13:00] VITALS: BP 146/64; PULSE 54; RESP 19; TEMP 97.7; O2SAT 100
== END 2024-04-13 16:00 | disposition home or self-care (01) | DRG 469 ==
LOC: ER 21:48 → TELE 04-10 04:10 → TELE-WESTW 04-10 14:16
PROVIDERS: ADMIT Nurse Practitioner Family; ATTEND Family Medicine
DX: N17.0 Acute kidney failure with tubular necrosis (principal); I21.A1 Myocardial infarction type 2; I50.23 Acute on chronic systolic (congestive) heart failure; I42.0 Dilated cardiomyopathy; I13.0 Hypertensive heart and chronic kidney disease with heart failure and stage 1 through stage 4 chronic kidney disease, or unspecified chronic kidney disease; E11.22 Type 2 diabetes mellitus with diabetic chronic kidney disease; E11.65 Type 2 diabetes mellitus with hyperglycemia; I16.0 Hypertensive urgency; N18.9 Chronic kidney disease, unspecified; I25.10 Atherosclerotic heart disease of native coronary artery without angina pectoris; J44.9 Chronic obstructive pulmonary disease, unspecified; I48.0 Paroxysmal atrial fibrillation; E78.00 Pure hypercholesterolemia, unspecified; Z99.81 Dependence on supplemental oxygen; Z90.49 Acquired absence of other specified parts of digestive tract; Z98.61 Coronary angioplasty status; Z87.891 Personal history of nicotine dependence
CPT/HCPCS: 36415; 36600; 71045; 80048; 80053; 82805; 82962; 83880; 84484; 85025; 93005; 93306; 93970; G0378; J1815; J3490

== ENCOUNTER 2024-07-04 16:32 | Inpatient (IN) | payer MEDICAID ==
[~2024-07-04] VITALS: Ht 167.6 cm; Wt 96.1 kg
[~2024-07-04 16:32] MED LIST changes: +AMLO1TAB22 PO; -ASPI-325 PO; +ASPI-628 PO; +ASPI81TA28 PO; +ATOR20TA PO; -ATOR20TA50 PO; +CARV-214 PO; +DOXY100C79 PO; -FERR-7 PO; +FERR325T20 PO; +FURO1TAB31 PO; +FURO20TA4 PO; +LIDO1.8P; +LOSA-534 PO; +METO25TA93 PO; +POTA-36 PO
[2024-07-04 16:56] LABS: Basophils # (auto) 0 10 ^3/uL (0-0.2); Basophils % (auto) 0.3 % (0.0-2.0); Eosinophils # (auto) 0.5 10 ^3/uL (0-0.8); Eosinophils % (auto) 4.2 % (0.0-7.0); Hematocrit 37.9 % (41.0-53.0); Hemoglobin 12.5 g/dL (13.5-17.5); Lymphocytes # (auto) 1.6 10 ^3/uL (0.4-5.4); Lymphocytes % (auto) 12.3 % (10.0-50.0); Mean Corpuscular Hemoglobin 30.2 pg (28.0-32.0); Mean Corpuscular Hgb Conc. 32.9 g/dL (32.0-36.0); Mean Corpuscular Volume 91.8 fL (80.0-100.0); Monocytes # (auto) 1.6 10 ^3/uL (0-1.3); Monocytes % (auto) 12.9 % (0.0-12.0); Neutrophils % (auto) 70.3 % (37.0-80.0); Platelet Count (auto) 261 10^3/uL (140-450); Red Blood Cells 4.13 10^6/uL (4.5-5.90); Red Cell Distribution Width 16.8 % (11.8-14.3); White Blood Cell 12.8 10^3/uL (4.4-10.8)
[2024-07-04 17:18] LABS: Alanine Aminotransferase 27 U/L (7-40); Albumin 4.4 g/dL (3.2-4.8); Alkaline Phosphatase 144 U/L (46-116); Anion Gap 9 (5-15); Aspartate Aminotransferase 31 U/L (13-40); BUN/Creatinine Ratio 12.1 (10.0-20.0); Blood Urea Nitrogen 20 mg/dL (9-23); Calcium 9.8 mg/dL (8.7-10.4); Carbon Dioxide 28 mmol/L (20-31); Chloride 104 mmol/L (98-107); Glucose 214 mg/dL (74-106); Potassium 3.9 mmol/L (3.5-5.1); Sodium 141 mmol/L (136-145)
[2024-07-04 17:19] LABS: Bilirubin, Total 1.5 mg/dL (0.2-1.0); Total Protein 6.7 g/dL (5.7-8.2)
--- NOTE | 2024-07-04 17:35 | DVH ---
CHEST RADIOGRAPH Indication:CP Technique: Single frontal view of the chest was obtained Comparison: XY CHEST PORTABLE on DOS: 05/01/24, XY CHEST XRAY 1 VIEW on DOS: 04/09/24, XY CHEST PORTABL E on DOS: 01/29/24 FINDINGS: Lines and Tubes: None Lungs: Interstitial opacities of the left mid to lower lung zone. Pleura: No effusion. No pneumothorax. Cardiomediastinal contours: Unremarkable Bones: No acute osseous abnormality. IMPRESSION: Left mid to lower lung zone pneumonia.
--- NOTE | 2024-07-04 18:02 | ED.PDOC ---
HPI Comments 78Y M with PMHx DM, HTN, HLD, CAD s/p stenting, CA, and asthma presents to ED for chief complaint chest pain with SOB x3days. Chest pain worsens with exertion and is rated at a level of 10/10. Chest pain is described as pressure. Pt also has a cough with yellow/white phlegm. Pt denies n/v/d. Pt is on 4L/min O2 at home but was unable to say why. Pt is an ex-smoker. No known allergies. Chief Complaint: Chest Pain Time Seen by MD: 17:29 Primary Care Provider: UNKNOWN Reviewed Notes: Medications, Allergies Allergies: Coded Allergies: NO KNOWN ALLERGIES (Unverified , 01/12/24) Home Meds Active Scripts Doxycycline (Monohydrate) (Doxycycline) 100 Mg Cap, 100 MG PO BID for 7 Days, #14 CAP Prov:NIGEL AYALA MD 05/05/24 Potassium Chloride (POTASSIUM CHLORIDE CR) 10 Meq Tb, 1 TAB PO DAILY, #90 TAB 1 Refill Prov:MOUNIKA GALLO MD 04/13/24 Atorvastatin Calcium (Lipitor) 20 Mg Tab, 1 TAB PO DAILY, #90 TAB 1 Refill Prov:MOUNIKA GALLO MD 04/13/24 Aspirin (Aspirin Adult Low Dose) 81 Mg Tab, 81 MG PO DAILY, #90 TAB Prov:MOUNIKA GALLO MD 04/13/24 Carvedilol (COREG) 3.125 Mg Tab, 3.125 MG PO BID, #180 TAB Prov:MOUNIKA GALLO MD 04/13/24 Furosemide (Lasix) 40 Mg Tab, 40 MG PO DAILY, #90 TAB Prov:MOUNIKA GALLO MD 04/13/24 Pantoprazole Sodium Sesquihydr (Pantoprazole Sodium) 40 Mg Tab, 40 MG PO DAILY for 30 Days, #30 TAB Prov:SANDOVAL JEAN RESIDENT 02/03/24 Umeclidinium-Vilanterol (Anoro Ellipta 62.5-25 Mcg/INH) 1 Aer Aer, 1 AER IN DAILY for 30 Days, AER Prov:SANDOVAL JEAN RESIDENT 02/03/24 Reported Medications Losartan Potassium (Losartan Potassium) 50 Mg Tab, 50 MG PO DAILY for 30 Days, MG 04/11/24 Amlodipine Besylate (Amlodipine Besylate) 5 Mg Tab, 5 MG PO DAILY for 30 Days, MG 04/11/24 Fluticasone Furoate-Vilanterol (Fluticasone Furoate/Vilan 200-25 Mcg/Act) 1 Inh Inh, 1 PUFF INH DAILY 04/10/24 Sacubitril-Valsartan (Entresto 24-26 mg) 1 Tab Tab, 1 TAB PO BID 04/10/24 Lidocaine (Ztlido) 1.8 % Pad, 1 PATCH DAILY 04/10/24 Ferrous Sulfate (Ferosul) 325 Mg Tab, 1 TAB PO DAILY 04/10/24 Aspirin (Aspirin Ec) 81 Mg Tab, 1 TAB PO DAILY 04/10/24 Atorvastatin Calcium (ATORVASTATIN CALCIUM) 40 Mg Tab, 1 TAB PO QPM 04/10/24 Furosemide (Furosemide) 20 Mg Tab, 1 TAB PO DAILYPRN PRN for swelling 04/10/24 Metoprolol Succinate (Metoprolol Succinate Er) 25 Mg Tab, 1 TAB PO DAILY 04/10/24 Information Source: Patient, Relative Mode of Arrival: Ambulatory Severity: Moderate Timing: Days Duration: Intermittent Location: Chest (L) Radiation: No Radiation Quality: Pressure Onset: At Rest Cardiac Risk Factors: Hyperlipidemia, HTN, Diabetes PE Risk Factors: None History of: Similar pain in past Modifying Factors: Nothing Associated Signs and Symptoms: SOB, Other Past Medical History PAST MEDICAL HISTORY: Asthma, CAD, Cancer, DM, High Lipids, HTN Surgical History: Appendectomy, PTCA Family History Family History: Unknown Social History Smoker: Non-Smoker, Quit Less Than 1 Year Alcohol: Denies ETOH Use Drugs: Denies Drug Use Lives In: Home Constitutional: denies: chills, diaphoresis, fatigue, fever, malaise, sweats, weakness, others EENTM: denies: blurred vision, double vision, ear bleeding, ear discharge, ear drainage, ear pain, ear ringing, eye pain, eye redness, hearing loss, mouth pain, mouth swelling, nasal discharge, nose bleeding, nose congestion, nose riaz n, photophobia, tearing, throat pain, throat swelling, voice changes, others Respiratory: reports: cough, shortness of breath; denies: hemoptysis, orthopnea, SOB at rest, SOB with excertion, stridor, wheezing, others Cardiovascular: reports: chest pain; denies: dizzy spells, diaphoresis, Dyspnea on exertion, edema, irregular heart beat, left arm pain, lightheadedness, palpitations, PND, syncope, others Gastrointestinal: denies: abdomen distended, abdominal pain, blood streaked bowels, constipated, diarrhea, dysphagia, difficulty swallowing, hematemesis, melena, nausea, poor appetite, poor fluid intake, rectal bleeding, rectal pain, vomiting, others Genitourinary: denies: burning, dysuria, flank pain, frequency, hematuria, incontinence, penile discharge, penile sore, pain, testicle pain, testicle swelling, urgency, others Neurological: denies: dizziness, fainting, headache, left sided numbness, left sided weakness, numbness, paresthesia, pre-existing deficit, right sided numbness, right sided weakness, seizure, speech problems, tingling, tremors, weakness, others Musculoskeletal: denies: back pain, gout, joint pain, joint swelling, muscle pain, muscle stiffness, neck pain, others Integumetry: denies: bruises, change in color, change in hair/nails, dryness, laceration, lesions, lumps, rash, wounds, others Allergic/Immunocompromised: denies: Difficulty Healing, Frequent Infections, Hives, Itching, others Hematologic/Lymphatic: denies: anemia, blood clots, easy bleeding, easy bruising, swollen glands, others Endocrine: denies: excessive hunger, excessive sweating, excessive thirst, excessive urination, flushing, intolerance to cold, intolerance to heat, unexplained weight gain, unexplained weight loss, others Psychiatric: denies: anxiety, bipolar disorder, depression, hopeless, panic disorder, schizophrenia, sleepless, suicidal, others All Other Systems: Reviewed and Negative Physical Exam General Appearance: No Apparent Distress HEENT: Normal ENT Inspection Neck: Full Range of Motion, Normal Inspection Respiratory: Decreased Breath Sounds, No Accessory Muscle Use, No Respiratory Distress Cardiovascular: No Edema, No JVD, Regular Rate/Rhythm Breast Exam: Deferred Gastrointestinal: Non Tender, Soft Genitalia: Deferred Pelvic: Deferred Rectal: Deferred Extremities: Normal inspection, Normal range of motion, Non-tender, No pedal edema Neurologic: Alert, No Motor Deficits, Normal Affect, Normal Mood, No Sensory Deficits Cerebellar Function: NOT DONE Reflexes: NOT DONE Skin: Dry, Normal Color, Warm Lymphatic: NOT DONE EKG EKG : Comments Sinus rhythm, rate 68, normal NV interval, QRS prolonged at 147, QTC prolonged at 494, normal axis, left bundle-branch block, baseline wander, nonspecific T change. No significant change from prior EKG May 07, 2024 which showed sinus rhythm with prolonged intervals and a left bundle-branch block. Was a procedure done? Was a procedure done?: No CP Differential Dx Differential Diagnosis: Angina, Hypoxia, AL Differential Diagnosis: CHF Differential Diagnosis: Chest Wall Pain, Esophageal reflux/spasm, Myocardial Infarction, Pericarditis, Pneumonia X-Ray, Labs, Meds, VS Vital Signs Date Time Temp Pulse Resp B/P (MAP) Pulse Ox O2 Delivery O2 Flow Rate FiO2 07/04/24 20:26 172/96 07/04/24 19:26 92 20 94 Room Air 07/04/24 19:15 98.4 92 20 142/62 (88) 94 98.4 07/04/24 18:41 18 98 Nasal Cannula* 3 32 07/04/24 17:02 98.4 63 18 179/72 (107) 95 07/04/24 16:41 68 Lab Test 07/04/24 20:07 07/04/24 17:58 07/04/24 17:03 07/04/24 16:38 Range/Units Lactic Acid Level 3.0 *H 0.4-2.0 mmol/L Troponin I High Sensitivity Pending 103 *H 105 *H </=54 ng/L Urine Color Yellow Yellow Urine Clarity Turbid H Clear Urine pH 6.0 5.0-9.0 Urine Specific [place] 1.023 1.001-1.035 Urine Protein 1+ H Negative Urine Ketones 2+ H Negative Urine Blood Negative Negative /uL Urine Nitrite 1+ H Negative Urine Bilirubin Negative Negative Urine Urobilinogen 2 H Negative mg/dL Urine Leukocyte Esterase 3+ Negative /uL Urine RBC 6 0 - 3 /hpf Urine WBC 568 0 - 3 /hpf Urine Squamous Epithelial Cells None seen <5 /hpf Urine Bacteria Few H None Seen /hpf Urine Mucus Few None Seen Urine Glucose Normal Normal mg/dL White Blood Count 12.8 H 4.4-10.8 10^3/uL Red Blood Count 4.13 L 4.5-5.90 10^6/uL Hemoglobin 12.5 L 13.5-17.5 g/dL Hematocrit 37.9 L 41.0-53.0 % Mean Corpuscular Volume 91.8 80.0-100.0 fL Mean Corpuscular Hemoglobin 30.2 28.0-32.0 pg Mean Corpuscular Hemoglobin Concent 32.9 32.0-36.0 g/dL Red Cell Distribution Width 16.8 H 11.8-14.3 % Platelet Count 261 140-450 10^3/uL Mean Platelet Volume 7.6 6.9-10.8 fL Neutrophils (%) (Auto) 70.3 37.0-80.0 % Lymphocytes (%) (Auto) 12.3 10.0-50.0 % Monocytes (%) (Auto) 12.9 H 0.0-12.0 % Eosinophils (%) (Auto) 4.2 0.0-7.0 % Basophils (%) (Auto) 0.3 0.0-2.0 % Neutrophils # (Auto) 9.0 H 1.6-8.6 10 ^3/uL Lymphocytes # (Auto) 1.6 0.4-5.4 10 ^3/uL Monocytes # (Auto) 1.6 H 0-1.3 10 ^3/uL Eosinophils # (Auto) 0.5 0-0.8 10 ^3/uL Basophils # (Auto) 0 0-0.2 10 ^3/uL Nucleated Red Blood Cells 0.0 % Sodium Level 141 136-145 mmol/L Potassium Level 3.9 3.5-5.1 mmol/L Chloride Level 104 98-107 mmol/L Carbon Dioxide Level 28 20-31 mmol/L Anion Gap 9 5-15 Blood Urea Nitrogen 20 9-23 mg/dL Creatinine 1.65 H 0.700-1.30 mg/dL Glomerular Filtration Rate Calc 42 >90 mL/min BUN/Creatinine Ratio 12.1 10.0-20.0 Serum Glucose 214 H 74-106 mg/dL Calcium Level 9.8 8.7-10.4 mg/dL Total Bilirubin 1.5 H 0.2-1.0 mg/dL Aspartate Amino Transferase (AST) 31 13-40 U/L Alanine Aminotransferase (ALT) 27 7-40 U/L Alkaline Phosphatase 144 H 46-116 U/L B-Type Natriuretic Peptide 467.48 0-100 pg/mL Total Protein 6.7 5.7-8.2 g/dL Albumin 4.4 3.2-4.8 g/dL Current Medications Medications (Trade) Dose Ordered Sig/Shan Route Start Time Stop Time Status Last Admin Aspirin 325 mg ONCE ONCE PO 07/04/24 18:30 07/04/24 18:40 DC 07/04/24 19:06 Nitroglycerin (Nitro-Bid) 1 pkg ONCE ONCE TD 07/04/24 18:30 07/04/24 18:40 DC 07/04/24 20:26 Ceftriaxone Sodium 50 ml @ 100 mls/hr ONCE ONCE IV 07/04/24 18:30 07/04/24 18:59 DC 07/04/24 19:06 Azithromycin 250 ml @ 125 mls/hr ONCE ONCE IV 07/04/24 18:30 07/04/24 20:29 DC 07/04/24 19:06 Albuterol (Ventolin Medneb) 5 mg ONCE ONCE NEB 07/04/24 18:30 07/04/24 18:40 DC 07/04/24 18:41 Ipratropium [place] (Atrovent Medneb) 0.5 mg ONCE ONCE NEB 07/04/24 18:30 07/04/24 18:40 DC 07/04/24 18:41 Methylprednisolone Sodium Succinate (Solu Medrol) 125 mg ONCE ONCE IV 07/04/24 18:30 07/04/24 18:40 DC 07/04/24 19:06 PROCEDURE(s): CXRP - CHEST PORTABLE REASON: CP ORDER NUMBER(s): [id number], ACCESSION NUMBER(s): [id number] CHEST RADIOGRAPH Indication:CP Technique: Single frontal view of the chest was obtained Comparison: XY CHEST PORTABLE on DOS: 05/01/24, XY CHEST XRAY 1 VIEW on DOS: 04/09/24, XY CHEST PORTABLE on DOS: 01/29/24 FINDINGS: Lines and Tubes: None Lungs: Interstitial opacities of the left mid to lower lung zone. Pleura: No effusion. No pneumothorax. Cardiomediastinal contours: Unremarkable Bones: No acute osseous abnormality. IMPRESSION: Left mid to lower lung zone pneumonia. X-Ray, Labs, Meds, VS Comment 78Y M with PMHx DM, HTN, HLD, CAD s/p stenting, CA, and asthma home O2 presenting complaining of shortness a breath and chest pain Vitals remarkable for BP 179/72 Exam remarkable for diminished breath sounds EKG sinus rhythm, left bundle-branch block, nonspecific T changes Chest x-ray IMPRESSION: Left mid to lower lung zone pneumonia. CBC remarkable for WBC 12.8, basic metabolic panel remarkable for creatinine 1.65, glucose 214 Troponin 105 BNP 467.48 UA abnormal consistent with UTI Lactate pending Patient treated with the following in the ED: Aspirin 325 mg p.o., nitro Dur 1/2 inch to chest wall, Rocephin 1 g IV, Zithromax 500 mg IV, albuterol 5 mg/Atrovent 0.5 mg nebulized, Solu-Medrol 125 mg IV On re-evaluation, patient resting comfortably with stable vitals, symptoms have improved. No respiratory distress. Plan is to admit the patient for IV antibiotics, respiratory support and Cardiology evaluation. Time of 1ST Reevaluation: 17:59 Reevaluation 1ST: Unchanged Time of 2ND Reevaluation: 18:30 Reevaluation 2ND: Improved Patient Education/Counseling: Diagnosis, Treatment Family Education/Counseling: Diagnosis, Treatment Sepsis Sepsis Reasesment Focused Exam Sepsis focused exam: focus exam completed, time: (2051 vitals stable, no respiratory distress. 30 cc/kilogram bolus not administered, as BNP is elevated and aggressive fluid administration may cause harm. 1 L 0.9 normal saline IV bolus administered.) Departure 1 Departure Time of Disposition: 18:30 Impression: Primary Impression: Non-STEMI (non-ST elevated myocardial infarction) Additional Impressions: Acute and chronic respiratory failure ([id number]) Qualified Codes: J96.20 - Acute and chronic respiratory failure, unspecified whether with hypoxia or hypercapnia Pneumonia Qualified Codes: J18.9 - Pneumonia, unspecified organism Sepsis Qualified Codes: A41.9 - Sepsis, unspecified organism Disposition: ADMITTED INPATIENT Admit to: Tele Condition: Guarded Critical Care Note Critical Care Time?: Yes (45 min-critical care time only) Critical care comment: Critical care time including multiple bedside re-evaluations, review of lab and imaging studies, and discussion of the case with the admitting provider. Patient is high risk for respiratory and/or hemodynamic decompensation. Stability Stability form required: No Heart Score Heart Score: Heart Score Response (Comments) Value History Moderate Suspicious [address]-Deviation 2 Age >65 2 Risk Factors >3 or Hx ASHD 2 Troponin 1-2 x's Normal limit 1 Total 8 I personally scribed for ROBERT MALIK MD ([email or web address]) on 07/04/24 at 18:02. Electronically submitted by Risa Cordova ([email or web address]). ROBERT MALIK MD Jul 04, 2024 18:02
[2024-07-04 18:17] LABS: Urine Bacteria FEW /hpf (None Seen); Urine Blood Negative /uL (Negative); Urine Clarity Turbid (Clear); Urine Color Yellow (Yellow); Urine Mucus FEW (None Seen); Urine Protein, UAD 1+ (Negative); Urine Specific Gravity 1.023 (1.001-1.035); Urine Urobilinogen 2 mg/dL (Negative); Urine WBC 568 /hpf (0 - 3)
[2024-07-04] MEDS: IPRATROPIUM BROM 0.5 MG/2.5ML INH SOL ONE (18:32)
[2024-07-04] MEDS: ALBUTEROL SULF 2.5 MG/0.5ML(0.5%) NEB SOLN ONE (18:32)
[2024-07-04] MEDS: IPRATROPIUM BROM 0.5 MG/2.5ML INH SOL NEB ONE (18:41)
[2024-07-04] MEDS: ALBUTEROL SULF 2.5 MG/0.5ML(0.5%) NEB SOLN NEB ONE (18:41)
[2024-07-04] MEDS: cefTRIAXone 1GM/50ML D5W 50 ML IV ONE (19:06)
[2024-07-04] MEDS: ASPirin 325 MG TAB PO ONE (19:06)
[2024-07-04] MEDS: methylPREDNISolone SOD SUCC 125 MG/2 ML VL IV ONE (19:06)
[2024-07-04] MEDS: AZITHROMYCIN 500MG/ 250ML 250 ML IV ONE (19:06)
[2024-07-04 20:04] VITALS: PULSE 94; RESP 35; O2SAT 95
[2024-07-04] MEDS: NITROGLYCERIN 2% OINT 1GM PKG TD ONE (20:26)
[2024-07-04] MEDS: SODIUM CHLORIDE 0.9% 1,000 ML IV ONE (21:22)
[2024-07-05] VITALS (9 sets, daily range): BP systolic 135–188; BP diastolic 53–77; PULSE 56–75; RESP 18–22; TEMP 97.3–98.7; O2SAT 96–100
[2024-07-05] MEDS ORDERED: MORPHINE SULFATE INJ 2 MG/ml SYRG IV PRN (05:00)
[2024-07-05] MEDS ORDERED: NITROGLYCERIN 0.4 MG SL TAB SL PRN (05:00)
[2024-07-05] MEDS ORDERED: ACETAMINOPHEN 325 MG TAB PO PRN (05:00)
[2024-07-05] MEDS ORDERED: ONDANSETRON HCL 4 MG/2 ML VIAL IV PRN (05:00)
--- NOTE | 2024-07-05 06:37 | ECG ---
[facility] Test Date: 2024-07-04 Test Time: 16:41:55 Pat Name: PATRICIA SHEN Department: ER Room: 0291T Gender: M Cyber Operator: JOCY : 1945 Requested By: EULALIO TOWNSEND Order Number: [id number] Reading MD: Erik Cahng Measurements Intervals [place] Rate: 68 P: 83 MD: 148 QRS: -30 QRSD: 147 T: 92 QT: 464 QTc: 494 Interpretive Statements Sinus rhythm Left bundle branch block Baseline wander in lead(s) V2,V6 Electronically Signed On 07-09-2024 17:01:39 PST by Erik Chang Please click the below link to view image of tracing.
--- NOTE | 2024-07-05 07:18 | DVHHP2 ---
History of Present Illness Reason for Visit: Shortness of breath History of Present Illness 78-year-old male presents for evaluation of shortness for breath. Patient presents with a three day history of worsening shortness for breath with associated chest pain. Reports worsening shortness for breath with mild exertion. Patient also associates having a productive cough with yellow phlegm. Denies any other acute complaints at the moment. Past Medical History CAD, asthma, cancer, diabetes mellitus, dyslipidemia and hypertension Past Surgical History PTCA and appendectomy Family History Noncontributory Smoke: No ALCOHOL: none Drugs: None Lives: with Family Review of Systems Review of Systems Review of systems are currently negative otherwise addressed in HPI. Allergies: Coded Allergies: NO KNOWN ALLERGIES (Unverified , 01/12/24) Medications Current Medications Medications Dose Ordered Sig/Shan Route Start Time Stop Time Status Last Admin Dose Admin Ceftriaxone Sodium 50 ml @ 100 mls/hr DAILY@1900 IV 07/05/24 19:00 Azithromycin 250 ml @ 125 mls/hr DAILY@1900 IV 07/05/24 19:00 UNV Amlodipine Besylate 5 mg DAILY PO 07/05/24 10:00 Aspirin 162 mg DAILY PO 07/05/24 10:00 Atorvastatin Calcium 40 mg HS PO 07/05/24 22:00 Carvedilol 3.125 mg Q12HR PO 07/05/24 10:00 Furosemide 40 mg DAILY PO 07/05/24 10:00 Losartan Potassium 50 mg DAILY PO 07/05/24 10:00 UNV Metoprolol Succinate 25 mg DAILY PO 07/05/24 10:00 UNV Sacubitril/ Valsartan 1 tab BID PO 07/05/24 10:00 UNV Albuterol 2.5 mg Q6HPRN PRN NEB 07/05/24 05:00 Ondansetron HCl 4 mg Q4HP PRN IV 07/05/24 05:00 Enoxaparin Sodium 30 mg DAILY SC 07/05/24 10:00 UNV Acetaminophen 650 mg Q6HP PRN PO 07/05/24 05:00 Nitroglycerin 0.4 mg Q5MINP PRN SL 07/05/24 05:00 Morphine Sulfate 2 mg Q30M PRN IV 07/05/24 05:00 Exam Vital Signs Vital Signs Date Time Temp Pulse Resp B/P (MAP) Pulse Ox O2 Delivery O2 Flow Rate FiO2 07/05/24 06:00 60 22 161/57 (91) 94 07/05/24 05:41 Nasal Cannula 4.0 07/05/24 05:41 36 07/04/24 20:04 98.4 98.4 Exam Gen: 78-year-old male in mild distress Skin: Warm, dry, normal color and texture, no rash. HEENT: Normocephalic atraumatic, mucous membranes moist and pink. Neck: Cervical and supraclavicular nodes normal without enlargement, trachea is midline, thyroid gland is normal without masses. Pulmonary: Clear to auscultation and percussion bilaterally. Cardiac: Regular rate and rhythm. No murmur Abdomen: Soft, nontender, nondistended, bowel sounds present all 4 quadrants, no guarding, no rigidity, no organomegaly. Extremities: No cyanosis, clubbing, no edema Neuro: Cranial nerves II through XII grossly intact, normal affect and speech, no focal motor deficits. Labs/Xrays ORDERING PHYSICIAN: EULALIO TOWNSEND MD PROCEDURE(s): CXRP - CHEST PORTABLE REASON: CP ORDER NUMBER(s): [id number], ACCESSION NUMBER(s): [id number] CHEST RADIOGRAPH Indication:CP Technique: Single frontal view of the chest was obtained Comparison: XY CHEST PORTABLE on DOS: 05/01/24, XY CHEST XRAY 1 VIEW on DOS: 04/09/24, XY CHEST PORTABLE on DOS: 01/29/24 FINDINGS: Lines and Tubes: None Lungs: Interstitial opacities of the left mid to lower lung zone. Pleura: No effusion. No pneumothorax. Cardiomediastinal contours: Unremarkable Bones: No acute osseous abnormality. IMPRESSION: Left mid to lower lung zone pneumonia. RING PHYSICIAN: PATRICK VERDIN MD PROCEDURE(s): ECIDC - ECHO 2D MODE CARDIAC DOP REASON: CHF ORDER NUMBER(s): [id number], ACCESSION NUMBER(s): [id number] APPROVED REPORT EXAM: Two-dimensional and M-mode echocardiogram with Doppler and color Doppler. Blood Pressure: 151/63 mmHg RISK FACTORS Height: 5'8, Weight: 189 DIMENSIONS LVDd 4.9 (3.8-5.7cm) LA (2D) 3.2 (1.9-4.0cm) Aortic Root 3.5 (2.0- 3.7cm) LVDs 4.1 (2.5-4.0cm) LA (MM) (1.9-4.0cm) Aortic Cusp Exc 1.7 (1.5- 2.0cm) EF (%) 23.0 (55-70%) Rt. Atrium 3.6 (1.9-4.0cm) Asc. Aorta 3.7 cm IVSd 1.2 (0.7-1.1cm) RV (D) (1.8-2.4cm) PWd 2.0 (0.7-1.1cm) Mitral Valve Mitral Mitral Stenosis E wave 0.49m/s MV Mean GR. mmHg A wave 1.02m/s MV Peak GR. 87mmHg E/A ratio 0.5 2D MVA cm2 DECEL Time 181ms PRESS 1/2 Time ms Aortic Valve Aortic Valve Aortic Stenosis V1 0.74m/s AO Mean GR. 4mmHg V2 1.32m/s AO Peak GR. 7mmHg LVOT Diameter 2.2 (1.8-2.4cm) Doppler SAMI 2.13cm2 Pulmonic Valve V2 1.15m/s Conclusion Severely dilated left ventricle. Severely reduced left ventricular systolic function with estimated ejection fraction 20% there is anterior, anteroseptal and anterolateral wall akinesia there is severe inferior inferolateral wall hypokinesia. There is a grade 1 diastolic dysfunction. Normal right ventricular size and dimension. Moderately reduced right ventricular systolic function. Borderline normal left and right left atrial size and dimension. Normal aortic valve structure and function. Normal mitral valve structure and function. Normal tricuspid valve structure and function. The pulmonary valve is grossly normal. No pericardial effusion. SIGNED BY: TYLER RASHID MD SIGNED DATE/TIME: 04/12/24 1204 Labs Test 07/05/24 06:40 07/05/24 05:00 07/04/24 22:06 07/04/24 20:07 Range/Units D-Dimer, Quantitative 1.97 H 0.0-0.49 mg/L FEU Lactic Acid Level 1.7 0.4-2.0 mmol/L Troponin I High Sensitivity 102 *H </=54 ng/L Test 07/04/24 17:03 07/04/24 16:38 Range/Units Urine Color Yellow Yellow Urine Clarity Turbid H Clear Urine pH 6.0 5.0-9.0 Urine Specific [place] 1.023 1.001-1.035 Urine Protein 1+ H Negative Urine Ketones 2+ H Negative Urine Blood Negative Negative /uL Urine Nitrite 1+ H Negative Urine Bilirubin Negative Negative Urine Urobilinogen 2 H Negative mg/dL Urine Leukocyte Esterase 3+ Negative /uL Urine RBC 6 0 - 3 /hpf Urine WBC 568 0 - 3 /hpf Urine Squamous Epithelial Cells None seen <5 /hpf Urine Bacteria Few H None Seen /hpf Urine Mucus Few None Seen Urine Glucose Normal Normal mg/dL White Blood Count 12.8 H 4.4-10.8 10^3/uL Red Blood Count 4.13 L 4.5-5.90 10^6/uL Hemoglobin 12.5 L 13.5-17.5 g/dL Hematocrit 37.9 L 41.0-53.0 % Mean Corpuscular Volume 91.8 80.0-100.0 fL Mean Corpuscular Hemoglobin 30.2 28.0-32.0 pg Mean Corpuscular Hemoglobin Concent 32.9 32.0-36.0 g/dL Red Cell Distribution Width 16.8 H 11.8-14.3 % Platelet Count 261 140-450 10^3/uL Mean Platelet Volume 7.6 6.9-10.8 fL Neutrophils (%) (Auto) 70.3 37.0-80.0 % Lymphocytes (%) (Auto) 12.3 10.0-50.0 % Monocytes (%) (Auto) 12.9 H 0.0-12.0 % Eosinophils (%) (Auto) 4.2 0.0-7.0 % Basophils (%) (Auto) 0.3 0.0-2.0 % Neutrophils # (Auto) 9.0 H 1.6-8.6 10 ^3/uL Lymphocytes # (Auto) 1.6 0.4-5.4 10 ^3/uL Monocytes # (Auto) 1.6 H 0-1.3 10 ^3/uL Eosinophils # (Auto) 0.5 0-0.8 10 ^3/uL Basophils # (Auto) 0 0-0.2 10 ^3/uL Nucleated Red Blood Cells 0.0 % Sodium Level 141 136-145 mmol/L Potassium Level 3.9 3.5-5.1 mmol/L Chloride Level 104 98-107 mmol/L Carbon Dioxide Level 28 20-31 mmol/L Anion Gap 9 5-15 Blood Urea Nitrogen 20 9-23 mg/dL Creatinine 1.65 H 0.700-1.30 mg/dL Glomerular Filtration Rate Calc 42 >90 mL/min BUN/Creatinine Ratio 12.1 10.0-20.0 Serum Glucose 214 H 74-106 mg/dL Calcium Level 9.8 8.7-10.4 mg/dL Total Bilirubin 1.5 H 0.2-1.0 mg/dL Aspartate Amino Transferase (AST) 31 13-40 U/L Alanine Aminotransferase (ALT) 27 7-40 U/L Alkaline Phosphatase 144 H 46-116 U/L B-Type Natriuretic Peptide 467.48 0-100 pg/mL Total Protein 6.7 5.7-8.2 g/dL Albumin 4.4 3.2-4.8 g/dL Assessment/Plan Assessment/Plan Assessment Community-acquired pneumonia Elevated troponin rule out NSTEMI CHF Hypertension Diabetes mellitus UTI Chronic kidney disease Plan Admit the patient to telemetry to the hospitalist Cardiology consultation Rocephin/azithromycin Resume home medications Continue treatment per orders. Plan discussed with: Patient My Orders Orders - NAVJOT DAVENPORT AGACNP Procedure Category Date Status Time Ceftriaxone 1gm/50ml PHA 07/05/24 In Process D5w (Rocephin) 19:00 Azithromycin 500mg/ PHA 07/05/24 Pending 250ml (Zithromax 50 19:00 Amlodipine Tablet PHA 07/05/24 In Process (Norvasc Tablet) 10:00 Aspirin Tablet PHA 07/05/24 In Process 10:00 Atorvastatin (Lipitor) PHA 07/05/24 In Process 22:00 Carvedilol Tablet PHA 07/05/24 In Process (Coreg Tablet) 10:00 Furosemide Tablet PHA 07/05/24 In Process (Lasix Tablet) 10:00 Losartan Tablet PHA 07/05/24 Pending (Cozaar Tablet) 10:00 Metoprolol Xl PHA 07/05/24 Pending Succinate (Toprol Xl) 10:00 Sacubitril-Valsartan PHA 07/05/24 Pending (Entresto 24-26 Mg 10:00 Albuterol Medneb PHA 07/05/24 In Process (Ventolin Medneb) 05:00 * Cardiology Consult CONS 07/05/24 Transmitted 04:46 Admit ADMIT 07/05/24 Transmitted 04:46 Ondansetron Hcl PHA 07/05/24 In Process (Zofran) 05:00 Complete Blood Count LAB 07/06/24 Verified 04:00 Cardiac DIET 07/05/24 Transmitted Diet-2gna,Lofat,Lochol Breakfast Condition: Fair [place] 07/05/24 In Process 04:46 Enoxaparin Sodium PHA 07/05/24 Pending (Lovenox) 10:00 Acetaminophen Tablet PHA 07/05/24 In Process (Tylenol Tablet) 05:00 Bedrest With Bathroom [facility] 07/05/24 In Process Privileg 04:46 Nitroglycerin [facility] 07/05/24 In Process Sublingual (Ntrostat 05:00 Morphine Sulfate PHA 07/05/24 In Process Injection 05:00 Stat Ekg For Chest [facility] 07/05/24 In Process Pain 04:46 Notify Md Of Changes [facility] 07/05/24 In Process From Base 04:46 All Terrain Vehicle Racer For [facility] 07/05/24 In Process 24 Hours 04:46 Emergency Dysrhythmia [facility] 07/05/24 In Process Protocol 04:46 Rhythm Strips Once [facility] 07/05/24 In Process Every Shift 04:46 Oxygen By Nasal RT 07/05/24 Transmitted Cannula 04:46 Basic Metabolic Panel LAB 07/06/24 Verified 04:00 Hydralazine Injection PHA 07/05/24 Logged (Apresoline Inject 07:15 Date of Service: Jul 05, 2024 Billing Provider: NAVJOT DAVENPORT Common Visit Codes: [id number] INP/OBS CARE (HIGH) NAVJOT DAVENPORT Jul 05, 2024 07:18
[2024-07-05 07:40] LABS: COVID19 ANTIGEN SOFIA FIA NEGATIVE (NEGATIVE)
[2024-07-05 07:44] LABS: Rapid Influenza A Negative (Negative); Rapid Influenza B Negative (Negative)
--- NOTE | 2024-07-05 08:18 | DVHINCON2 ---
Date Seen: Jul 05, 2024 Referring Physician CROW Al Reason for Consultation Elevated trop History of Present Illness This is a Turkmen-speaking mostly 78-year-old male who presented to the emergency room with a chief complaint of chest pain for four days. Describes his chest pain as localized to the epigastric area and radiating to the left inframammary area, pressure-like, and associated with shortness of breath, a productive cough with white sputum, and dyspnea on exertion. States his chest pain is worse when he coughs. He underwent a 12 lead electrocardiogram revealing a sinus rhythm with an associated left bundle branch block. Troponin levels peaked at 105 ng/L prompting Cardiology evaluation. Systolic blood pressure upon arrival was found in the 190s mmHg. Per caregiver/daughter Prabha, the patient follows-up with a primary Police Lieutenant as outpatient but unable to recall name. Significant medical history includes nonischemic cardiomyopathy with EF of 20%, paroxysmal atrial fibrillation of NOACs 2/2 to recent GI bleed, hypertension, dyslipidemia, COPD with O2 dependence on 4 liters/minute, [id number] diabetes mellitus, and obesity. Past Medical History Past medical history reviewed. No other significant than mentioned above. Past Surgical History Past surgical history reviewed. No other significant than mentioned above. Family History: Patient reports no known family medical history. Family History Family history reviewed. Social History Patient has a 15 pack-year history, quit smoking approximately one year ago. Patient denies the use of alcohol or illicit drugs. Allergies: Coded Allergies: NO KNOWN ALLERGIES (Unverified , 01/12/24) Home Meds Active Scripts Doxycycline (Monohydrate) (Doxycycline) 100 Mg Cap, 100 MG PO BID for 7 Days, #14 CAP Prov:NIGEL AYALA MD 05/05/24 Potassium Chloride (POTASSIUM CHLORIDE CR) 10 Meq Tb, 1 TAB PO DAILY, #90 TAB 1 Refill Prov:MOUNIKA GALLO MD 04/13/24 Atorvastatin Calcium (Lipitor) 20 Mg Tab, 1 TAB PO DAILY, #90 TAB 1 Refill Prov:MOUNIKA GALLO MD 04/13/24 Aspirin (Aspirin Adult Low Dose) 81 Mg Tab, 81 MG PO DAILY, #90 TAB Prov:MOUNIKA GALLO MD 04/13/24 Carvedilol (COREG) 3.125 Mg Tab, 3.125 MG PO BID, #180 TAB Prov:MOUNIKA GALLO MD 04/13/24 Furosemide (Lasix) 40 Mg Tab, 40 MG PO DAILY, #90 TAB Prov:MOUNIKA GALLO MD 04/13/24 Pantoprazole Sodium Sesquihydr (Pantoprazole Sodium) 40 Mg Tab, 40 MG PO DAILY for 30 Days, #30 TAB Prov:SANDOVAL JEAN RESIDENT 02/03/24 Umeclidinium-Vilanterol (Anoro Ellipta 62.5-25 Mcg/INH) 1 Aer Aer, 1 AER IN DAILY for 30 Days, AER Prov:SANDOVAL JEAN RESIDENT 02/03/24 Reported Medications Losartan Potassium (Losartan Potassium) 50 Mg Tab, 50 MG PO DAILY for 30 Days, MG 04/11/24 Amlodipine Besylate (Amlodipine Besylate) 5 Mg Tab, 5 MG PO DAILY for 30 Days, MG 04/11/24 Fluticasone Furoate-Vilanterol (Fluticasone Furoate/Vilan 200-25 Mcg/Act) 1 Inh Inh, 1 PUFF INH DAILY 04/10/24 Sacubitril-Valsartan (Entresto 24-26 mg) 1 Tab Tab, 1 TAB PO BID 04/10/24 Lidocaine (Ztlido) 1.8 % Pad, 1 PATCH DAILY 04/10/24 Ferrous Sulfate (Ferosul) 325 Mg Tab, 1 TAB PO DAILY 04/10/24 Aspirin (Aspirin Ec) 81 Mg Tab, 1 TAB PO DAILY 04/10/24 Atorvastatin Calcium (ATORVASTATIN CALCIUM) 40 Mg Tab, 1 TAB PO QPM 04/10/24 Furosemide (Furosemide) 20 Mg Tab, 1 TAB PO DAILYPRN PRN for swelling 04/10/24 Metoprolol Succinate (Metoprolol Succinate Er) 25 Mg Tab, 1 TAB PO DAILY 04/10/24 Home Meds Home medications reviewed. Current Medications Current Medications Medications (Trade) Dose Ordered Sig/Shan Route PRN Reason Start Time Stop Time Status Last Admin Ceftriaxone Sodium 50 ml @ 100 mls/hr DAILY@1900 IV 07/05/24 19:00 Azithromycin 250 ml @ 125 mls/hr DAILY@1900 IV 07/05/24 19:00 UNV Amlodipine Besylate (Norvasc Tablet) 5 mg DAILY PO 07/05/24 10:00 Aspirin 162 mg DAILY PO 07/05/24 10:00 Atorvastatin Calcium (Lipitor) 40 mg HS PO 07/05/24 22:00 Carvedilol (Coreg Tablet) 3.125 mg Q12HR PO 07/05/24 10:00 Furosemide (Lasix Tablet) 40 mg DAILY PO 07/05/24 10:00 Losartan Potassium (Cozaar Tablet) 50 mg DAILY PO 07/05/24 10:00 07/05/24 07:14 DC Metoprolol Succinate (Toprol Xl) 25 mg DAILY PO 07/05/24 10:00 07/05/24 07:14 DC Sacubitril/ Valsartan (Entresto 24-26 Mg tab) 1 tab BID PO 07/05/24 10:00 UNV Albuterol (Ventolin Medneb) 2.5 mg Q6HPRN PRN NEB SHORTNESS OF BREATH 07/05/24 05:00 Ondansetron HCl (Zofran) 4 mg Q4HP PRN IV NAUSEA / VOMITING 07/05/24 05:00 Enoxaparin Sodium (Lovenox) 30 mg DAILY SC 07/05/24 10:00 UNV Acetaminophen (Tylenol Tablet) 650 mg Q6HP PRN PO PAIN SCALE 1-3 OR TEMP>100.4 07/05/24 05:00 Nitroglycerin (Ntrostat Sublingual) 0.4 mg Q5MINP PRN SL FOR CHEST PAIN 07/05/24 05:00 Morphine Sulfate 2 mg Q30M PRN IV FOR CHEST PAIN 07/05/24 05:00 Review of Systems Constitutional: No symptom reported Ears, Nose, & Throat: No symptom reported Eyes: No symptom reported Neurological: No symptoms reported Pulmonary/Respiratory: SOB, GROSS, productive cough Cardiovascular: Chest pain Gastrointestinal: No symptom reported Genitourinary: No symptom reported Musculoskeletal: No symptom reported Skin: No symptom reported Psychiatric: No symptom reported Endocrine: No symptom reported Hemotologic/Lymphatic: No symptom reported Vital Signs Vital Signs Date Time Temp Pulse Resp B/P (MAP) Pulse Ox O2 Delivery O2 Flow Rate FiO2 07/05/24 06:00 60 22 161/57 (91) 94 07/05/24 05:41 Nasal Cannula 4.0 07/05/24 05:41 36 07/04/24 20:04 98.4 98.4 Physical Exam General Appearance: Cooperative. Well developed. Well nourished. In no acute distress Head Exam: Normal inspection Neck Exam: Normal inspection. Non-tender. Normal alignment Pulmonary/Respiratory: Chest non-tender. Coarse L>R bilateral breath sounds Cardiovascular/Chest: Regular rate and rhythm. S1, S2. Sinus rhythm with LBBB. No murmurs. No JVD. Peripheral Pulses: 2+ Radial (R). 2+ Radial (L). 2+ Pedal (R). 2+ Pedal (L) Abdominal Exam: Normal bowel sounds. Soft. Nontender. No hepatospenomegaly. No masses Ankle Exam: Negative ankle edema Lower extremities: Negative lower extremity edema Neuro/Mental Status: A&O x4. Coherent Thoughts/Psych: Normal thought pattern. Appropriate mood and affect. Good judgement and insight Appearance: In no acute distress Skin Exam: Normal inspection. Normal color. Warm. Dry Labs/Diagnostic Data Labs Test 07/05/24 06:40 07/05/24 05:00 07/04/24 22:06 07/04/24 20:07 Range/Units Influenza Type A Antigen Negative Negative Influenza Type B Antigen Negative Negative SARS-CoV-2 Antigen (Rapid) Negative NEGATIVE D-Dimer, Quantitative 1.97 H 0.0-0.49 mg/L FEU Lactic Acid Level 1.7 0.4-2.0 mmol/L Troponin I High Sensitivity 102 *H </=54 ng/L Test 07/04/24 17:03 07/04/24 16:38 Range/Units Urine Color Yellow Yellow Urine Clarity Turbid H Clear Urine pH 6.0 5.0-9.0 Urine Specific [place] 1.023 1.001-1.035 Urine Protein 1+ H Negative Urine Ketones 2+ H Negative Urine Blood Negative Negative /uL Urine Nitrite 1+ H Negative Urine Bilirubin Negative Negative Urine Urobilinogen 2 H Negative mg/dL Urine Leukocyte Esterase 3+ Negative /uL Urine RBC 6 0 - 3 /hpf Urine WBC 568 0 - 3 /hpf Urine Squamous Epithelial Cells None seen <5 /hpf Urine Bacteria Few H None Seen /hpf Urine Mucus Few None Seen Urine Glucose Normal Normal mg/dL White Blood Count 12.8 H 4.4-10.8 10^3/uL Red Blood Count 4.13 L 4.5-5.90 10^6/uL Hemoglobin 12.5 L 13.5-17.5 g/dL Hematocrit 37.9 L 41.0-53.0 % Mean Corpuscular Volume 91.8 80.0-100.0 fL Mean Corpuscular Hemoglobin 30.2 28.0-32.0 pg Mean Corpuscular Hemoglobin Concent 32.9 32.0-36.0 g/dL Red Cell Distribution Width 16.8 H 11.8-14.3 % Platelet Count 261 140-450 10^3/uL Mean Platelet Volume 7.6 6.9-10.8 fL Neutrophils (%) (Auto) 70.3 37.0-80.0 % Lymphocytes (%) (Auto) 12.3 10.0-50.0 % Monocytes (%) (Auto) 12.9 H 0.0-12.0 % Eosinophils (%) (Auto) 4.2 0.0-7.0 % Basophils (%) (Auto) 0.3 0.0-2.0 % Neutrophils # (Auto) 9.0 H 1.6-8.6 10 ^3/uL Lymphocytes # (Auto) 1.6 0.4-5.4 10 ^3/uL Monocytes # (Auto) 1.6 H 0-1.3 10 ^3/uL Eosinophils # (Auto) 0.5 0-0.8 10 ^3/uL Basophils # (Auto) 0 0-0.2 10 ^3/uL Nucleated Red Blood Cells 0.0 % Sodium Level 141 136-145 mmol/L Potassium Level 3.9 3.5-5.1 mmol/L Chloride Level 104 98-107 mmol/L Carbon Dioxide Level 28 20-31 mmol/L Anion Gap 9 5-15 Blood Urea Nitrogen 20 9-23 mg/dL Creatinine 1.65 H 0.700-1.30 mg/dL Glomerular Filtration Rate Calc 42 >90 mL/min BUN/Creatinine Ratio 12.1 10.0-20.0 Serum Glucose 214 H 74-106 mg/dL Calcium Level 9.8 8.7-10.4 mg/dL Total Bilirubin 1.5 H 0.2-1.0 mg/dL Aspartate Amino Transferase (AST) 31 13-40 U/L Alanine Aminotransferase (ALT) 27 7-40 U/L Alkaline Phosphatase 144 H 46-116 U/L B-Type Natriuretic Peptide 467.48 0-100 pg/mL Total Protein 6.7 5.7-8.2 g/dL Albumin 4.4 3.2-4.8 g/dL Assessment Sepsis with pneumonia Acute on chronic decompensated HFrEF, NYHA class IV Nonischemic/dilated cardiomyopathy with an EF of 20% Hypertensive urgency NSTEMI type II secondary to above Paroxysmal atrial fibrillation, Stage 3a (not on NOAC/antiarrhythmic) COPD on home O2 Acute kidney injury Plan/Recommendation (Dr. Rashid) * Echocardiogram from 04/12/2024 revealed EF 20%. Initiate LifeVest * There is anterior, anteroseptal and anterolateral wall akinesia there is severe inferior inferolateral wall hypokinesia. * Preload and afterload reduction as tolerated * Strict intake and output, daily weights, maintain fluid restriction * Continue GDMT for CHF and up-titrate as tolerated. Monitor HR closely while on BB * Unable to initiate mineralocorticoid and SGLT2i given ASIM * Hold NOAC therapy given recent GI bleed, at high-risk for acute CVAs * [id number] Score 5. HAS-BLED Score 3. * ABX therapy per primary care team * DVT/VTE prophylaxis The patient presents chest pain SOB likely secondary to pneumonia, acute on chronic CHF, and hypertensive urgency. He underwent a cardiac catheterization and coronary angiogram revealing normal coronaries on 01/16/2024. Continue GDMT for CHF and up-titrate as tolerated. Initiate LifeVest. If no improvement on left ventricular function within three months of medical therapy, the patient may qualify for an implantable cardioverter defibrillator. Caregiver advised for regular follow-ups with Cardiology as outpatient. Thank you for allowing us to care for this patient. Please call with any questions or concerns. This medical document was created using an electronic medical record system with voice recognition software and computerized dictation system. Although this document has been carefully reviewed, there might still be some phonetic and typographical errors. Occasional wrong-word or ``sound-alike substitutions may have occurred due to the inherent limitations of voice recognition software. These areas are purely typographical due to imperfections of the software programs and do not reflect any compromise in the patient's medical care. Please read the chart carefully and recognize, using context, where these substitutions have occurred. Plan discussed with: Patient, Other Date of Service: Jul 05, 2024 Billing Provider: TYLER RASHID MD Cardiology Common Codes: [id number] INP/OBS CARE (High) SUNDAR CARO [facility] Jul 05, 2024 08:18
[2024-07-05] MEDS: hydrALAZINE HCL 20 MG/ML VL IV ONE (08:25)
[2024-07-05 08:44] LABS: Basophils # (auto) 0 10 ^3/uL (0-0.2); Basophils % (auto) 0.3 % (0.0-2.0); Eosinophils # (auto) 0 10 ^3/uL (0-0.8); Hematocrit 33.1 % (41.0-53.0); Hemoglobin 11.2 g/dL (13.5-17.5); Lymphocytes # (auto) 0.7 10 ^3/uL (0.4-5.4); Lymphocytes % (auto) 6.5 % (10.0-50.0); Mean Corpuscular Hemoglobin 30.9 pg (28.0-32.0); Mean Corpuscular Hgb Conc. 33.8 g/dL (32.0-36.0); Mean Corpuscular Volume 91.5 fL (80.0-100.0); Monocytes # (auto) 0.3 10 ^3/uL (0-1.3); Monocytes % (auto) 3.1 % (0.0-12.0); Neutrophils # (auto) 9.8 10 ^3/uL (1.6-8.6); Neutrophils % (auto) 90.1 % (37.0-80.0); Platelet Count (auto) 222 10^3/uL (140-450); Red Blood Cells 3.62 10^6/uL (4.5-5.90); Red Cell Distribution Width 16.6 % (11.8-14.3); White Blood Cell 10.9 10^3/uL (4.4-10.8)
[2024-07-05 08:50] LABS: Chloride 105 mmol/L (98-107); Potassium 4.3 mmol/L (3.5-5.1); Sodium 138 mmol/L (136-145)
[2024-07-05 08:51] LABS: Anion Gap 8 (5-15); Calcium 9.6 mg/dL (8.7-10.4); Carbon Dioxide 25 mmol/L (20-31)
[2024-07-05 08:56] LABS: BUN/Creatinine Ratio 13.4 (10.0-20.0); Blood Urea Nitrogen 21 mg/dL (9-23); Glucose 300 mg/dL (74-106)
[2024-07-05] MEDS ORDERED: METOPROLOL SUCCINATE XL 50 MG TAB PO SCH (10:00)
[2024-07-05] MEDS ORDERED: CARVEDILOL 3.125 MG TAB PO SCH (10:00)
[2024-07-05] MEDS ORDERED: amLODIPine BESYLATE 5 MG TAB PO SCH (10:00)
[2024-07-05] MEDS ORDERED: LOSARTAN POTASSIUM 50 MG TAB PO SCH (10:00)
[2024-07-05] MEDS ORDERED: ASPirin 81 mg TAB PO SCH (10:00)
[2024-07-05] MEDS: ENOXAPARIN SOD 30 MG/0.3 ML SYRINGE SC SCH (12:04)
[2024-07-05] MEDS: SACUBITRIL-VALSARTAN 24mg/26mg TAB PO SCH (12:05)
[2024-07-05] MEDS: hydrALAZINE HCL 20 MG/ML VL IV PRN (12:05)
[2024-07-05] MEDS: FUROSEMIDE 40 MG TAB PO SCH (13:37)
[2024-07-05] MEDS ORDERED: DEXTROSE (50%) 50ML SYRG IV PRN (16:15)
[2024-07-05] MEDS: ACCU-CHEK COMFORT CURVE STRIP VI SCH (17:37)
[2024-07-05] MEDS: cefTRIAXone 1GM/50ML D5W 50 ML IV SCH (18:43)
[2024-07-05] MEDS: InsuLIN REG 1unit/0.01ml Soln (100units/ml) SC SCH ×2 (18:58→22:11)
[2024-07-05] MEDS: AZITHROMYCIN 500MG/ 250ML 250 ML IV SCH (20:26)
[2024-07-05] MEDS: CARVEDILOL 12.5 MG TAB PO SCH (22:07)
[2024-07-05] MEDS: ATORVASTATIN 20 MG TAB PO SCH (22:07)
[2024-07-06] VITALS (10 sets, daily range): BP systolic 97–157; BP diastolic 49–66; PULSE 48–68; RESP 17–19; TEMP 97.7–98.6; O2SAT 96–100
[2024-07-06 06:12] LABS: Basophils # (auto) 0.1 10 ^3/uL (0-0.2); Basophils % (auto) 0.3 % (0.0-2.0); Eosinophils # (auto) 0.1 10 ^3/uL (0-0.8); Eosinophils % (auto) 0.4 % (0.0-7.0); Hematocrit 35.3 % (41.0-53.0); Lymphocytes # (auto) 2.1 10 ^3/uL (0.4-5.4); Lymphocytes % (auto) 12.7 % (10.0-50.0); Mean Corpuscular Hemoglobin 30.7 pg (28.0-32.0); Mean Corpuscular Volume 90.5 fL (80.0-100.0); Monocytes # (auto) 1.4 10 ^3/uL (0-1.3); Monocytes % (auto) 8.3 % (0.0-12.0); Neutrophils # (auto) 12.8 10 ^3/uL (1.6-8.6); Neutrophils % (auto) 78.3 % (37.0-80.0); Platelet Count (auto) 318 10^3/uL (140-450); Red Blood Cells 3.91 10^6/uL (4.5-5.90); Red Cell Distribution Width 16.4 % (11.8-14.3); White Blood Cell 16.4 10^3/uL (4.4-10.8)
[2024-07-06 06:13] LABS: Anion Gap 9 (5-15); Carbon Dioxide 28 mmol/L (20-31); Chloride 103 mmol/L (98-107); Potassium 3.8 mmol/L (3.5-5.1); Sodium 140 mmol/L (136-145)
[2024-07-06 06:14] LABS: Calcium 10.2 mg/dL (8.7-10.4)
[2024-07-06 06:19] LABS: BUN/Creatinine Ratio 19.7 (10.0-20.0)
[2024-07-06 06:21] LABS: Blood Urea Nitrogen 36 mg/dL (9-23); Glucose 171 mg/dL (74-106)
--- NOTE | 2024-07-06 10:47 | DVHPN2 ---
Consult Progress Note Date Seen: Jul 06, 2024 Subjective Review of Systems: CVS:Normal, RESPIRATORY:Normal, NEURO:Normal Other Systems: Denies any cardiac symptoms Objective vital signs Vital Sign Date Time Temp Pulse Resp B/P (MAP) Pulse Ox O2 Delivery O2 Flow Rate FiO2 07/06/24 09:00 98.2 62 19 157/63 (94) 97 98.2 07/06/24 07:20 Nasal Cannula* 2 28 Total Intake and Output 07/05/24 07/05/24 07/06/24 15:00 23:00 07:00 Intake Total 250 ml 800 ml 600 ml Output Total 400 ml 900 ml Balance 250 ml 400 ml -300 ml medications Current Medications Medications Dose Ordered Sig/Shan Route Start Time Stop Time Status Last Admin Dose Admin Ceftriaxone Sodium 50 ml @ 100 mls/hr DAILY@1900 IV 07/05/24 19:00 07/05/24 18:43 100 MLS/HR Azithromycin 250 ml @ 125 mls/hr DAILY@1900 IV 07/05/24 19:00 07/05/24 20:26 125 MLS/HR Atorvastatin Calcium 40 mg HS PO 07/05/24 22:00 07/05/24 22:07 40 MG Furosemide 40 mg DAILY PO 07/05/24 10:00 07/05/24 13:37 40 MG Sacubitril/ Valsartan 1 tab BID PO 07/05/24 10:00 07/05/24 22:06 1 TAB Albuterol 2.5 mg Q6HPRN PRN NEB 07/05/24 05:00 Ondansetron HCl 4 mg Q4HP PRN IV 07/05/24 05:00 Enoxaparin Sodium 30 mg DAILY SC 07/05/24 10:00 07/05/24 12:04 30 MG Acetaminophen 650 mg Q6HP PRN PO 07/05/24 05:00 Nitroglycerin 0.4 mg Q5MINP PRN SL 07/05/24 05:00 Morphine Sulfate 2 mg Q30M PRN IV 07/05/24 05:00 Hydralazine HCl 10 mg Q6HP PRN IV 07/05/24 08:30 07/05/24 18:46 10 MG Carvedilol 12.5 mg Q12HR PO 07/05/24 22:00 07/05/24 22:07 12.5 MG Diagnostic Test (Pha) 1 strip ACHS 07/05/24 17:00 07/06/24 06:15 1 STRIP Insulin Human Regular HS SC 07/05/24 22:00 07/05/24 22:11 2 UNITS Insulin Human Regular AC SC 07/05/24 17:00 07/06/24 06:16 2 UNITS Dextrose 50 ml UD PRN IV 07/05/24 16:15 Examination: LUNGS:Abnormal (Crackles L>R), CVS:Normal, NEURO:Normal laboratory and microbiology Laboratory Tests 07/06/24 05:21 Test 07/06/24 05:21 Range/Units Serum Glucose 171 #H 74-106 mg/dL Problem List/Assessment/Plan Problem List/Assessment/Plan Sepsis with pneumonia Acute on chronic decompensated HFrEF, NYHA class IV Nonischemic/dilated cardiomyopathy with an EF of 20% Hypertensive urgency NSTEMI type II secondary to above Paroxysmal atrial fibrillation, Stage 3a (not on NOAC/antiarrhythmic) COPD on home O2 Acute kidney injury Plan/Recommendation (Dr. Rashid) * Echocardiogram from 04/12/2024 revealed EF 20%. Initiate LifeVest * There is anterior, anteroseptal and anterolateral wall akinesia there is severe inferior inferolateral wall hypokinesia. * Cardiac catheterization and coronary angiogram: normal coronaries on 01/16/2024 * Preload and afterload reduction as tolerated * Strict intake and output, daily weights, maintain fluid restriction * Continue GDMT for CHF and up-titrate as tolerated. Monitor HR closely while on BB * Unable to initiate ARNi, mineralocorticoid, and SGLT2i given ASIM. Initiate nitrate * Hold NOAC therapy given recent GI bleed, at high-risk for acute CVAs * [id number] Score 5. HAS-BLED Score 3. * ABX therapy per primary care team * Initiate Nephrology consultation * DVT/VTE prophylaxis Continue GDMT for CHF and up-titrate as tolerated. Initiate LifeVest. If no improvement on left ventricular function within three months of medical therapy, the patient may qualify for an implantable cardioverter defibrillator. Caregiver/daughter Prahba advised for regular follow-ups with Cardiology as outpatient. Cardiac stable. There is no further cardiac work-up indicated at this time. Kindly call if in need to re-consult. Thank you for allowing us to care for this patient. This medical document was created using an electronic medical record system with voice recognition software and computerized dictation system. Although this document has been carefully reviewed, there might still be some phonetic and typographical errors. Occasional wrong-word or ``sound-alike substitutions may have occurred due to the inherent limitations of voice recognition software. These areas are purely typographical due to imperfections of the software programs and do not reflect any compromise in the patient's medical care. Please read the chart carefully and recognize, using context, where these substitutions have occurred. Plan discussed with: Patient, Other Date of Service: Jul 06, 2024 Billing Provider: TYLER RASHID MD Cardiology Common Codes: [id number] INP/OBS CARE(Mod) [facility] Jul 06, 2024 10:47
[2024-07-06] MEDS: ISOSORBIDE MONONITRATE ER 60 MG TAB PO ONE (10:56)
--- NOTE | 2024-07-06 11:30 | DVHPN2 ---
Subjective The patient is seen and examined at bedside. Very tired today. Reviewed: Care Plan, H&P, Labs, Medications, Previous Orders, Radiology Changes from previous H/P or p: No Changes Objective Vitals Vital Signs Date Time Temp Pulse Resp B/P (MAP) Pulse Ox O2 Delivery O2 Flow Rate FiO2 07/06/24 10:57 62 151/63 07/06/24 09:00 98.2 19 97 98.2 07/06/24 07:20 Nasal Cannula* 2 28 Intake/Output Intake and Output 07/06/24 07:00 Intake Total 1650 ml Output Total 1300 ml Balance 350 ml Intake Oral 1350 ml IV Total 300 ml Output Urine Total 1300 ml # Bowel Movements 1 General Appearance: Alert, Cooperative, No acute distress HEENT: Atraumatic, PERRLA, EOMI, Mucous membr. moist/pink Neck: Supple Cardiovascular: Regular rate, Normal S1, Normal S2, No murmurs, Gallops, Rubs Abdomen: Normal bowel sounds, Soft, No tenderness Neuro: Cranial nerves 3-12 NL Psych/Mental Status: Mental status NL Medications Current Medications Medications Dose Ordered Sig/Shan Route Start Time Stop Time Status Last Admin Dose Admin Ceftriaxone Sodium 50 ml @ 100 mls/hr DAILY@1900 IV 07/05/24 19:00 07/05/24 18:43 100 MLS/HR Azithromycin 250 ml @ 125 mls/hr DAILY@1900 IV 07/05/24 19:00 07/05/24 20:26 125 MLS/HR Atorvastatin Calcium 40 mg HS PO 07/05/24 22:00 07/05/24 22:07 40 MG Furosemide 40 mg DAILY PO 07/05/24 10:00 07/06/24 10:57 40 MG Albuterol 2.5 mg Q6HPRN PRN NEB 07/05/24 05:00 Ondansetron HCl 4 mg Q4HP PRN IV 07/05/24 05:00 Enoxaparin Sodium 30 mg DAILY SC 07/05/24 10:00 07/06/24 10:57 30 MG Acetaminophen 650 mg Q6HP PRN PO 07/05/24 05:00 Nitroglycerin 0.4 mg Q5MINP PRN SL 07/05/24 05:00 Morphine Sulfate 2 mg Q30M PRN IV 07/05/24 05:00 Hydralazine HCl 10 mg Q6HP PRN IV 07/05/24 08:30 07/05/24 18:46 10 MG Carvedilol 12.5 mg Q12HR PO 07/05/24 22:00 07/06/24 10:57 12.5 MG Diagnostic Test (Pha) 1 strip ACHS 07/05/24 17:00 07/06/24 10:58 1 STRIP Insulin Human Regular HS SC 07/05/24 22:00 07/05/24 22:11 2 UNITS Insulin Human Regular AC SC 07/05/24 17:00 07/06/24 06:16 2 UNITS Dextrose 50 ml UD PRN IV 07/05/24 16:15 Isosorbide Mononitrate 60 mg DAILY PO 07/07/24 10:00 Laboratory Results Laboratory Tests 07/06/24 05:21 Chemistry Test 07/06/24 05:21 Calcium Level 10.2 mg/dL (8.7-10.4) Urinalysis Test 07/04/24 17:03 Urine Color Yellow (Yellow) Urine Clarity Turbid (Clear) H Urine pH 6.0 (5.0-9.0) Urine Specific [place] 1.023 (1.001-1.035) Urine Protein 1+ (Negative) H Urine Ketones 2+ (Negative) H Urine Blood Negative /uL (Negative) Urine Nitrite 1+ (Negative) H Urine Bilirubin Negative (Negative) Urine Urobilinogen 2 mg/dL (Negative) H Urine Leukocyte Esterase 3+ /uL (Negative) Urine RBC 6 /hpf (0 - 3) Urine WBC 568 /hpf (0 - 3) Urine Squamous Epithelial Cells None seen /hpf (<5) Urine Bacteria Few /hpf (None Seen) H Urine Mucus Few (None Seen) Urine Glucose Normal mg/dL (Normal) Labs and/or images reviewed: Labs reviewed by me Assessment/Plan Assessment/Plan Community-acquired pneumonia possible secondary to Gram-positive bacteria pneumonia Elevated troponin rule out NSTEMI CHF Hypertension Diabetes mellitus UTI Chronic kidney disease stage III Plan: Continuing current management. Continuing IV antibiotic with Rocephin and Zithromax. Waiting for magnetic prospecting supervisor to see the patient. Continuing with sliding scale insulin. We will follow up with culture. Also waiting for histotechnologist to see the patient. Plan discussed with: Patient Date of Service: Jul 06, 2024 Billing Provider: PATRICK VERDIN MD Common Visit Codes: [id number] INP/OBS CARE(HIGH) PATRICK VERDIN MD Jul 06, 2024 11:30
--- NOTE | 2024-07-06 12:55 | CONS ---
Pharmacy Clinical Information: From [facility] Heart Failure Fallout Report, Cheung Jaswant Najera is a 78 year old male with PMH of CAD, asthma, CHF (LVEF 20%), DM, HTN, and dyslipidemia. His home medications for heart failure include furosemide, metoprolol succinate, and sacubitril/valsartan. His inpatient medications include furosemide, carvedilol, hydralazine, isosorbide mononitrate, and sacubitril/valsartan (discontinued due to ASIM). SGLT2i are not recommended due to UTI. Consider switching carvedilol to metoprolol succinate due to asthma. Consider reinitiating sacubitril/valsartan at discharge if ASIM resolves. Consider initiating MRA (spironolactone) discharge if ASIM resolves, since K <5 and eGFR >30. GREG COLBERT PHARMACIST Jul 06, 2024 12:55
--- NOTE | 2024-07-06 16:01 | DVHCONRES ---
Date Seen: Jul 06, 2024 Resident Creating Document: SHANAE RIDLEY RESIDENT Referring Physician Carlos MARIA Reason for Consultation ASIM History of Present Illness This is a 78-year-old male, Yoruba-speaking, poor historian with past medical history of hypertension, CAD with PTCA stent placement, COPD with home oxygen 3L, type 2 diabetes mellitus, asthma, prostate cancer presented to the ED with chief complaint of chest pain associated with shortness of breath, cough, increased sputum production and fever for past 4-5 days. Patient also had associated yellowish sputum production. Patient use home oxygen 3.5 L via nasal cannula. Nephrology consultation was done for acute kidney injury. Patient denying any other symptoms at this point including generalized weakness, sensory deficits, motor weakness, fever, chills, urinary symptoms including urine increased frequency, burning micturition, any other symptoms. Past Medical History hypertension, CAD with PTCA stent placement, COPD with home oxygen 3L, type 2 diabetes mellitus, asthma, prostate Past Surgical History PTCA, prostate surgery Family History: Cardiovascular disease G8 MOTHER, Onset:30 - 40 Family History Not pertinent. Social History Patient denied smoking, alcohol use, patient denied any illicit drug use. Patient lives with family. Allergies: Coded Allergies: NO KNOWN ALLERGIES (Unverified , 01/12/24) Home Meds Active Scripts Potassium Chloride (POTASSIUM CHLORIDE CR) 10 Meq Tb, 1 TAB PO DAILY, #90 TAB 1 Refill Prov:MOUNIKA GALLO MD 04/13/24 Carvedilol (COREG) 3.125 Mg Tab, 3.125 MG PO BID, #180 TAB Prov:MOUNIKA GALLO MD 04/13/24 Furosemide (Lasix) 40 Mg Tab, 40 MG PO DAILY, #90 TAB Prov:MOUNIKA GALLO MD 04/13/24 Pantoprazole Sodium Sesquihydr (Pantoprazole Sodium) 40 Mg Tab, 40 MG PO DAILY for 30 Days, #30 TAB Prov:SANDOVAL JEAN RESIDENT 02/03/24 Umeclidinium-Vilanterol (Anoro Ellipta 62.5-25 Mcg/INH) 1 Aer Aer, 1 AER IN DAILY for 30 Days, AER Prov:SANDOVAL JEAN RESIDENT 02/03/24 Reported Medications Losartan Potassium (Losartan Potassium) 50 Mg Tab, 50 MG PO DAILY for 30 Days, MG 04/11/24 Amlodipine Besylate (Amlodipine Besylate) 5 Mg Tab, 5 MG PO DAILY for 30 Days, MG 04/11/24 Fluticasone Furoate-Vilanterol (Fluticasone Furoate/Vilan 200-25 Mcg/Act) 1 Inh Inh, 1 PUFF INH DAILY 04/10/24 Sacubitril-Valsartan (Entresto 24-26 mg) 1 Tab Tab, 1 TAB PO BID 04/10/24 Lidocaine (Ztlido) 1.8 % Pad, 1 PATCH DAILY 04/10/24 Ferrous Sulfate (Ferosul) 325 Mg Tab, 1 TAB PO DAILY 04/10/24 Aspirin (Aspirin Ec) 81 Mg Tab, 1 TAB PO DAILY 04/10/24 Atorvastatin Calcium (ATORVASTATIN CALCIUM) 40 Mg Tab, 1 TAB PO QPM 04/10/24 Metoprolol Succinate (Metoprolol Succinate Er) 25 Mg Tab, 1 TAB PO DAILY 04/10/24 Current Medications Current Medications Medications (Trade) Dose Ordered Sig/Shan Route PRN Reason Start Time Stop Time Status Last Admin Ceftriaxone Sodium 50 ml @ 100 mls/hr DAILY@1900 IV 07/05/24 19:00 07/05/24 18:43 Azithromycin 250 ml @ 125 mls/hr DAILY@1900 IV 07/05/24 19:00 07/05/24 20:26 Atorvastatin Calcium (Lipitor) 40 mg HS PO 07/05/24 22:00 07/05/24 22:07 Carvedilol (Coreg Tablet) 12.5 mg Q12HR PO 07/05/24 22:00 07/06/24 10:57 Diagnostic Test (Pha) (Accu-Chek Comfort Curve T) 1 strip ACHS 07/05/24 17:00 07/06/24 10:58 Insulin Human Regular (InsuLIN R) HS SC 07/05/24 22:00 07/05/24 22:11 Insulin Human Regular (InsuLIN R) AC SC 07/05/24 17:00 07/06/24 12:09 Dextrose 50 ml UD PRN IV Blood Sugar LESS THAN 60 07/05/24 16:15 Isosorbide Mononitrate (Imdur Er Tablet) 60 mg DAILY PO 07/07/24 10:00 Review of Systems Eyes: No Pain, No Vision change, No Conjunctivae inflammation, No Eyelid inflammation, No Other, No Redness ENT: No Ear pain, No Ear discharge, No Nose pain, No Nose discharge, No Nose congestion, No Mouth pain, No Mouth swelling, No Throat pain, No Throat swel ling, No Other Cardiovascular: Chest Pain, No Palpitations, No Orthopnea, No Paroxysmal Noc. Dyspnea, No Edema, No Lt Headedness, No Other Respiratory: Cough, No Dry, Shortness of breath, No SOB with excertion, No Wheezing, No Hemoptysis, No Pleuritic Pain, No Sputum, No Other Gastrointestinal: No Nausea, No Vomiting, No Abdominal Pain, No Diarrhea, No Constipation, No Melena, No Hematochezia, No Other Genitourinary: No Dysuria, No Frequency, No Incontinence, No Hematuria, No Retention, No Other Musculoskeletal: No other, No neck pain, No shoulder pain, No arm pain, No back pain, No hand pain, No leg pain, No foot pain Skin: No Rash, No Lesions, No Jaundice, No Bruising, No Other Vital Signs Vital Signs Date Time Temp Pulse Resp B/P (MAP) Pulse Ox O2 Delivery O2 Flow Rate FiO2 07/06/24 13:00 97.7 48 17 124/57 (79) 96 97.7 07/06/24 08:00 Nasal Cannula* 3 32 Physical Exam General Appearance: Cooperative. Well developed. Well nourished. NAD Head Exam: Normal inspection Neck Exam: Normal inspection. Non-tender. Normal alignment Pulmonary/Respiratory: Chest non-tender. Left lower lobe crackles. Cardiovascular/Chest: Regular rate and rhythm. No murmurs. No JVD. Peripheral Pulses: 2+ Radial (R). 2+ Radial (L). 2+ Pedal (R). 2+ Pedal (L) Abdominal Exam: Normal bowel sounds. Soft. Nontender. No hepatospenomegaly. No masses Ankle Exam: Negative ankle edema Lower extremities: Negative lower extremity edema Neuro/Mental Status: A&O x4. Coherent Thoughts/Psych: Normal thought pattern. Appropriate mood and affect. Good judgement and insight Appearance: In no acute distress Skin Exam: Normal inspection. Normal color. Warm. Dry Labs/Diagnostic Data Labs Test 07/06/24 11:03 07/06/24 05:21 07/05/24 06:40 07/05/24 05:00 Range/Units POC Glucose 214 H 70-106 mg/dl White Blood Count 16.4 #H 4.4-10.8 10^3/uL Red Blood Count 3.91 L 4.5-5.90 10^6/uL Hemoglobin 12.0 L 13.5-17.5 g/dL Hematocrit 35.3 L 41.0-53.0 % Mean Corpuscular Volume 90.5 80.0-100.0 fL Mean Corpuscular Hemoglobin 30.7 28.0-32.0 pg Mean Corpuscular Hemoglobin Concent 34.0 32.0-36.0 g/dL Red Cell Distribution Width 16.4 H 11.8-14.3 % Platelet Count 318 140-450 10^3/uL Mean Platelet Volume 7.8 6.9-10.8 fL Neutrophils (%) (Auto) 78.3 37.0-80.0 % Lymphocytes (%) (Auto) 12.7 10.0-50.0 % Monocytes (%) (Auto) 8.3 0.0-12.0 % Eosinophils (%) (Auto) 0.4 0.0-7.0 % Basophils (%) (Auto) 0.3 0.0-2.0 % Neutrophils # (Auto) 12.8 H 1.6-8.6 10 ^3/uL Lymphocytes # (Auto) 2.1 0.4-5.4 10 ^3/uL Monocytes # (Auto) 1.4 H 0-1.3 10 ^3/uL Eosinophils # (Auto) 0.1 0-0.8 10 ^3/uL Basophils # (Auto) 0.1 0-0.2 10 ^3/uL Nucleated Red Blood Cells 0.0 % Sodium Level 140 136-145 mmol/L Potassium Level 3.8 3.5-5.1 mmol/L Chloride Level 103 98-107 mmol/L Carbon Dioxide Level 28 20-31 mmol/L Anion Gap 9 5-15 Blood Urea Nitrogen 36 #H 9-23 mg/dL Creatinine 1.83 H 0.700-1.30 mg/dL Glomerular Filtration Rate Calc 37 >90 mL/min BUN/Creatinine Ratio 19.7 10.0-20.0 Serum Glucose 171 #H 74-106 mg/dL Calcium Level 10.2 8.7-10.4 mg/dL Influenza Type A Antigen Negative Negative Influenza Type B Antigen Negative Negative SARS-CoV-2 Antigen (Rapid) Negative NEGATIVE D-Dimer, Quantitative 1.97 H 0.0-0.49 mg/L FEU Magnesium Level 2.1 1.6-2.6 mg/dL B-Type Natriuretic Peptide 571.38 0-100 pg/mL Test 07/04/24 22:06 07/04/24 20:07 07/04/24 17:03 07/04/24 16:38 Range/Units Lactic Acid Level 1.7 0.4-2.0 mmol/L Troponin I High Sensitivity 102 *H </=54 ng/L Urine Color Yellow Yellow Urine Clarity Turbid H Clear Urine pH 6.0 5.0-9.0 Urine Specific [place] 1.023 1.001-1.035 Urine Protein 1+ H Negative Urine Ketones 2+ H Negative Urine Blood Negative Negative /uL Urine Nitrite 1+ H Negative Urine Bilirubin Negative Negative Urine Urobilinogen 2 H Negative mg/dL Urine Leukocyte Esterase 3+ Negative /uL Urine RBC 6 0 - 3 /hpf Urine WBC 568 0 - 3 /hpf Urine Squamous Epithelial Cells None seen <5 /hpf Urine Bacteria Few H None Seen /hpf Urine Mucus Few None Seen Urine Glucose Normal Normal mg/dL Total Bilirubin 1.5 H 0.2-1.0 mg/dL Aspartate Amino Transferase (AST) 31 13-40 U/L Alanine Aminotransferase (ALT) 27 7-40 U/L Alkaline Phosphatase 144 H 46-116 U/L Total Protein 6.7 5.7-8.2 g/dL Albumin 4.4 3.2-4.8 g/dL Assessment ASIM on 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 Osborne 1. Blood pressure management: Target blood pressure less than 130/80 mmHg. Currently on isosorbide mononitrate 60 mg p.o. daily, carvedilol 12.5 mg p.o. q.12. Lasix 40 mg p.o. daily. 2. Diabetic management: HGB A1c 6.9 on 05/02/2024. On insulin sliding scale. 3. Heart failure management: Cardiology on board, initiate GDM T as toleration. 4. Monitor kidney function including serum creatinine, GFR, urine albumin creatinine ratio to assess CKD progression. Recommend outpatient nephrology follow after discharge. 5. Echocardiogram 04/12/2024 showed 20% ejection fraction, anterior, anteroseptal and anterolateral wall akinesia. Grade 1 diastolic dysfunction. 6. Recommend low-sodium diet less than 2 g per day, fluid restriction less than 1.2 L per day 7. SGLT2 inhibitors can provide dual benefits for diabetes and kidney protection and HF. 8. Advised on medication adherence with heart failure and hypertensive medication. Total time spent greater than 79 minutes, 50% of the time spent interacting with patient [id number]. Thank you for consultation. Addendum Patient seen and examined, plan discussed with resident. Agree with above, we will follow closely Recommend IV Lasix 40 mg once a day while in hospital Continue heart failure meds per Cardiology slight fluctuation in renal function is acceptable with GDMT Plan discussed with: Patient, Other (RN) SHANAE RIDLEY RESIDENT Jul 06, 2024 16:01 ERMELINDA OSBORNE MD Jul 06, 2024 18:24
[2024-07-07] VITALS (11 sets, daily range): BP systolic 106–156; BP diastolic 54–71; PULSE 51–67; RESP 16–19; TEMP 97.5–99; O2SAT 96–99
[2024-07-07 06:53] LABS: Anion Gap 7 (5-15); Carbon Dioxide 30 mmol/L (20-31); Chloride 103 mmol/L (98-107); Potassium 3.9 mmol/L (3.5-5.1); Sodium 140 mmol/L (136-145)
[2024-07-07 06:54] LABS: Calcium 9.6 mg/dL (8.7-10.4)
[2024-07-07 06:59] LABS: BUN/Creatinine Ratio 20.8 (10.0-20.0); Blood Urea Nitrogen 40 mg/dL (9-23); Glucose 144 mg/dL (74-106)
[2024-07-07] MEDS: ISOSORBIDE MONONITRATE ER 60 MG TAB PO SCH (10:00)
--- NOTE | 2024-07-07 11:24 | DVHPN2 ---
Subjective The patient is seen and examined at bedside. Complain of shortness a breath and chest pain today. Reviewed: Care Plan, H&P, Labs, Medications, Previous Orders, Radiology Changes from previous H/P or p: No Changes Objective Vitals Vital Signs Date Time Temp Pulse Resp B/P (MAP) Pulse Ox O2 Delivery O2 Flow Rate FiO2 07/07/24 11:04 120/65 07/07/24 10:00 58 07/07/24 09:00 97.5 19 98 97.5 07/06/24 20:00 Nasal Cannula* 3 32 Intake/Output Intake and Output 07/07/24 07:00 Intake Total 1550 ml Output Total 650 ml Balance 900 ml Intake Oral 1250 ml IV Total 300 ml Output Urine Total 650 ml # Bowel Movements 1 General Appearance: Alert, Oriented X3, Cooperative, No acute distress HEENT: Atraumatic, PERRLA, EOMI, Mucous membr. moist/pink Neck: Supple Cardiovascular: Regular rate, Normal S1, Normal S2, No murmurs, Gallops, Rubs Abdomen: Normal bowel sounds, Soft, No tenderness Neuro: Cranial nerves 3-12 NL Psych/Mental Status: Mental status NL Medications Current Medications Medications Dose Ordered Sig/Shan Route Start Time Stop Time Status Last Admin Dose Admin Ceftriaxone Sodium 50 ml @ 100 mls/hr DAILY@1900 IV 07/05/24 19:00 07/06/24 18:51 100 MLS/HR Azithromycin 250 ml @ 125 mls/hr DAILY@1900 IV 07/05/24 19:00 07/06/24 21:39 125 MLS/HR Atorvastatin Calcium 40 mg HS PO 07/05/24 22:00 07/06/24 21:37 40 MG Furosemide 40 mg DAILY PO 07/05/24 10:00 07/07/24 11:04 40 MG Albuterol 2.5 mg Q6HPRN PRN NEB 07/05/24 05:00 Ondansetron HCl 4 mg Q4HP PRN IV 07/05/24 05:00 Enoxaparin Sodium 30 mg DAILY SC 07/05/24 10:00 07/07/24 11:04 30 MG Acetaminophen 650 mg Q6HP PRN PO 07/05/24 05:00 Nitroglycerin 0.4 mg Q5MINP PRN SL 07/05/24 05:00 Morphine Sulfate 2 mg Q30M PRN IV 07/05/24 05:00 Hydralazine HCl 10 mg Q6HP PRN IV 07/05/24 08:30 07/05/24 18:46 10 MG Carvedilol 12.5 mg Q12HR PO 07/05/24 22:00 07/06/24 21:37 12.5 MG Diagnostic Test (Pha) 1 strip ACHS 07/05/24 17:00 07/07/24 11:05 1 STRIP Insulin Human Regular HS SC 07/05/24 22:00 07/06/24 21:43 6 UNITS Insulin Human Regular AC SC 07/05/24 17:00 07/07/24 06:16 2 UNITS Dextrose 50 ml UD PRN IV 07/05/24 16:15 Isosorbide Mononitrate 60 mg DAILY PO 07/07/24 10:00 Laboratory Results Laboratory Tests 07/06/24 05:21 07/07/24 06:01 Chemistry Test 07/07/24 06:01 Calcium Level 9.6 mg/dL (8.7-10.4) Urinalysis Test 07/04/24 17:03 Urine Color Yellow (Yellow) Urine Clarity Turbid (Clear) H Urine pH 6.0 (5.0-9.0) Urine Specific [place] 1.023 (1.001-1.035) Urine Protein 1+ (Negative) H Urine Ketones 2+ (Negative) H Urine Blood Negative /uL (Negative) Urine Nitrite 1+ (Negative) H Urine Bilirubin Negative (Negative) Urine Urobilinogen 2 mg/dL (Negative) H Urine Leukocyte Esterase 3+ /uL (Negative) Urine RBC 6 /hpf (0 - 3) Urine WBC 568 /hpf (0 - 3) Urine Squamous Epithelial Cells None seen /hpf (<5) Urine Bacteria Few /hpf (None Seen) H Urine Mucus Few (None Seen) Urine Glucose Normal mg/dL (Normal) Labs and/or images reviewed: Labs reviewed by me Assessment/Plan Assessment/Plan Community-acquired pneumonia possible secondary to Gram-positive bacteria pneumonia Sepsis due to pneumonia Elevated troponin secondary to non ST elevation ID type 2 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 Continuing with IV antibiotic Rocephin and Zithromax. We will follow up with culture. Carpet Journeyman's input appreciated. According to mail carrier technician the patient need LifeVest for list three months and re-evaluate of his heart failure. Waiting for the life vest fitting. Continuing with isosorbide mononitrate, Coreg, and statin. Continuing with oxygen support. Continuing with sliding scale insulin and other hypertensive medication. Continuing to follow up with culture. Continuing with Lasix. Plan discussed with: Patient Date of Service: Jul 07, 2024 Billing Provider: PATRICK VERDIN MD Common Visit Codes: [id number] INP/OBS CARE(HIGH) PATRICK VERDIN MD Jul 07, 2024 11:24
--- NOTE | 2024-07-07 11:26 | DVHPN2 ---
Progress Note Date Seen: Jul 07, 2024 Resident Creating Document: SHANAE RIDLEY RESIDENT Medical Necessity Reason Pt with a Central, PICC or Fol: No Subjective Review of Systems History of Present Illness This is a 78-year-old male, [place]-speaking, poor historian with past medical history of hypertension, CAD with PTCA stent placement, COPD with home oxygen 3L, type 2 diabetes mellitus, asthma, prostate cancer presented to the ED with chief complaint of chest pain associated with shortness of breath, cough, increased sputum production and fever for past 4-5 days. Patient also had associated yellowish sputum production. Patient use home oxygen 3.5 L via nasal cannula. Nephrology consultation was done for acute kidney injury. Patient denying any other symptoms at this point including generalized weakness, sensory deficits, motor weakness, fever, chills, urinary symptoms including urine increased frequency, burning micturition, any other symptoms. Past Medical History hypertension, CAD with PTCA stent placement, COPD with home oxygen 3L, type 2 diabetes mellitus, asthma, prostate Past Surgical History PTCA, prostate surgery Patient is seen and examined at bedside. No other complaints. Patient currently feeling better. Objective vital signs Vital Sign Date Time Temp Pulse Resp B/P (MAP) Pulse Ox O2 Delivery O2 Flow Rate FiO2 07/07/24 11:04 120/65 07/07/24 10:00 58 07/07/24 09:00 97.5 19 98 97.5 07/06/24 20:00 Nasal Cannula* 3 32 Total Intake and Output 07/06/24 07/06/24 07/07/24 15:00 23:00 07:00 Intake Total 700 ml 850 ml Output Total 250 ml 400 ml Balance 450 ml 450 ml medications Current Medications Medications Dose Ordered Sig/Shan Route Start Time Stop Time Status Last Admin Dose Admin Ceftriaxone Sodium 50 ml @ 100 mls/hr DAILY@1900 IV 07/05/24 19:00 07/06/24 18:51 100 MLS/HR Azithromycin 250 ml @ 125 mls/hr DAILY@1900 IV 07/05/24 19:00 07/06/24 21:39 125 MLS/HR Atorvastatin Calcium 40 mg HS PO 07/05/24 22:00 07/06/24 21:37 40 MG Furosemide 40 mg DAILY PO 07/05/24 10:00 07/07/24 11:04 40 MG Albuterol 2.5 mg Q6HPRN PRN NEB 07/05/24 05:00 Ondansetron HCl 4 mg Q4HP PRN IV 07/05/24 05:00 Enoxaparin Sodium 30 mg DAILY SC 07/05/24 10:00 07/07/24 11:04 30 MG Acetaminophen 650 mg Q6HP PRN PO 07/05/24 05:00 Nitroglycerin 0.4 mg Q5MINP PRN SL 07/05/24 05:00 Morphine Sulfate 2 mg Q30M PRN IV 07/05/24 05:00 Hydralazine HCl 10 mg Q6HP PRN IV 07/05/24 08:30 07/05/24 18:46 10 MG Carvedilol 12.5 mg Q12HR PO 07/05/24 22:00 07/06/24 21:37 12.5 MG Diagnostic Test (Pha) 1 strip ACHS 07/05/24 17:00 07/07/24 11:05 1 STRIP Insulin Human Regular HS SC 07/05/24 22:00 07/06/24 21:43 6 UNITS Insulin Human Regular AC SC 07/05/24 17:00 07/07/24 06:16 2 UNITS Dextrose 50 ml UD PRN IV 07/05/24 16:15 Isosorbide Mononitrate 60 mg DAILY PO 07/07/24 10:00 Examination General Appearance: Cooperative. Well developed. Well nourished. NAD Head Exam: Normal inspection Neck Exam: Normal inspection. Non-tender. Normal alignment Pulmonary/Respiratory: Chest non-tender. Left lower lobe crackles. Cardiovascular/Chest: Regular rate and rhythm. No murmurs. No JVD. Peripheral Pulses: 2+ Radial (R). 2+ Radial (L). 2+ Pedal (R). 2+ Pedal (L) Abdominal Exam: Normal bowel sounds. Soft. Nontender. No hepatospenomegaly. No masses Ankle Exam: Negative ankle edema Lower extremities: Negative lower extremity edema Neuro/Mental Status: A&O x4. Coherent Thoughts/Psych: Normal thought pattern. Appropriate mood and affect. Good judgement and insight Appearance: In no acute distress Skin Exam: Normal inspection. Normal color. Warm. Dry laboratory and microbiology Laboratory Tests 07/07/24 06:01 07/06/24 05:21 Test 07/07/24 06:01 Range/Units Serum Glucose 144 H 74-106 mg/dL Problem List/Assessment/Plan Problem List/Assessment/Plan ASIM on 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 Caro 1. Blood pressure management: Target blood pressure less than 130/80 mmHg. Currently on isosorbide mononitrate 60 mg p.o. daily, carvedilol 12.5 mg p.o. q.12. Lasix 40 mg p.o. daily. 2. Diabetic management: HGB A1c 6.9 on 05/02/2024. On insulin sliding scale. 3. Heart failure management: Cardiology on board, initiate GDM T as toleration. 4. Monitor kidney function including serum creatinine, GFR, urine albumin creatinine ratio to assess CKD progression. Recommend outpatient nephrology follow after discharge. 5. Echocardiogram 04/12/2024 showed 20% ejection fraction, anterior, anteroseptal and anterolateral wall akinesia. Grade 1 diastolic dysfunction. 6. Recommend low-sodium diet less than 2 g per day, fluid restriction less than 1.2 L per day 7. SGLT2 inhibitors can provide dual benefits for diabetes and kidney protection and HF. 8. Advised on medication adherence with heart failure and hypertensive medication. -Continue heart failure meds per Cardiology slight fluctuation in renal function is acceptable with GDMT Addendum Patient seen and examined, plan discussed with resident. Agree with above, we will follow closely Switch to IV Lasix Plan discussed with: Patient, Other (RN) SHANAE RIDLEY Jul 07, 2024 11:26 ERMELINDA CARO MD Jul 07, 2024 18:45
[2024-07-07] MEDS: ALBUTEROL SULF 2.5 MG/0.5ML(0.5%) NEB SOLN NEB PRN (11:46)
[2024-07-07] MEDS: FUROSEMIDE 40 MG/4 ML VIAL IV ONE (19:07)
[2024-07-08] VITALS (11 sets, daily range): BP systolic 107–147; BP diastolic 50–72; PULSE 55–67; RESP 16–19; TEMP 97.4–98.8; O2SAT 91–98
[2024-07-08 09:37] LABS: Anion Gap 6 (5-15); Calcium 9.7 mg/dL (8.7-10.4); Carbon Dioxide 33 mmol/L (20-31); Chloride 103 mmol/L (98-107); Potassium 4.1 mmol/L (3.5-5.1); Sodium 142 mmol/L (136-145)
[2024-07-08 09:42] LABS: BUN/Creatinine Ratio 20.3 (10.0-20.0); Blood Urea Nitrogen 40 mg/dL (9-23)
[2024-07-08 09:47] LABS: Glucose 254 mg/dL (74-106)
[2024-07-08] MEDS ORDERED: FUROSEMIDE 40 MG/4 ML VIAL IV SCH (10:00)
--- NOTE | 2024-07-08 11:27 | DVHPN2 ---
Progress Note Date Seen: Jul 08, 2024 Resident Creating Document: SHANAE RIDLEY RESIDENT Medical Necessity Reason Pt with a Central, PICC or Fol: No Subjective Review of Systems This is a 78-year-old male, [place]-speaking, poor historian with past medical history of hypertension, CAD with PTCA stent placement, COPD with home oxygen 3L, type 2 diabetes mellitus, asthma, prostate cancer presented to the ED with chief complaint of chest pain associated with shortness of breath, cough, increased sputum production and fever for past 4-5 days. Patient also had associated yellowish sputum production. Patient use home oxygen 3.5 L via nasal cannula. Nephrology consultation was done for acute kidney injury. Patient denying any other symptoms at this point including generalized weakness, sensory deficits, motor weakness, fever, chills, urinary symptoms including urine increased frequency, burning micturition, any other symptoms. Past Medical History hypertension, CAD with PTCA stent placement, COPD with home oxygen 3L, type 2 diabetes mellitus, asthma, prostate Past Surgical History PTCA, prostate surgery Patient is seen and examined at bedside. No other complaints. Objective vital signs Vital Sign Date Time Temp Pulse Resp B/P (MAP) Pulse Ox O2 Delivery O2 Flow Rate FiO2 07/08/24 08:41 97.4 66 19 127/66 (86) 91 97.4 07/07/24 20:00 Nasal Cannula* 3 32 Total Intake and Output 07/07/24 07/07/24 07/08/24 15:00 23:00 07:00 Intake Total 680 ml 400 ml Output Total 650 ml 750 ml Balance 30 ml -350 ml medications Current Medications Medications Dose Ordered Sig/Shan Route Start Time Stop Time Status Last Admin Dose Admin Ceftriaxone Sodium 50 ml @ 100 mls/hr DAILY@1900 IV 07/05/24 19:00 07/07/24 18:36 100 MLS/HR Azithromycin 250 ml @ 125 mls/hr DAILY@1900 IV 07/05/24 19:00 07/07/24 19:07 125 MLS/HR Atorvastatin Calcium 40 mg HS PO 07/05/24 22:00 07/07/24 21:40 40 MG Albuterol 2.5 mg Q6HPRN PRN NEB 07/05/24 05:00 07/07/24 11:46 2.5 MG Ondansetron HCl 4 mg Q4HP PRN IV 07/05/24 05:00 Enoxaparin Sodium 30 mg DAILY SC 07/05/24 10:00 07/07/24 11:04 30 MG Acetaminophen 650 mg Q6HP PRN PO 07/05/24 05:00 Nitroglycerin 0.4 mg Q5MINP PRN SL 07/05/24 05:00 Morphine Sulfate 2 mg Q30M PRN IV 07/05/24 05:00 Hydralazine HCl 10 mg Q6HP PRN IV 07/05/24 08:30 07/07/24 21:41 10 MG Carvedilol 12.5 mg Q12HR PO 07/05/24 22:00 07/08/24 00:48 12.5 MG Diagnostic Test (Pha) 1 strip ACHS 07/05/24 17:00 07/08/24 06:12 1 STRIP Insulin Human Regular HS SC 07/05/24 22:00 07/07/24 21:40 2 UNITS Insulin Human Regular AC SC 07/05/24 17:00 07/08/24 06:13 3 UNITS Dextrose 50 ml UD PRN IV 07/05/24 16:15 Isosorbide Mononitrate 60 mg DAILY PO 07/07/24 10:00 Furosemide 40 mg DAILY IV 07/08/24 10:00 Examination General Appearance: Cooperative. Well developed. Well nourished. NAD Head Exam: Normal inspection Neck Exam: Normal inspection. Non-tender. Normal alignment Pulmonary/Respiratory: Chest non-tender. Left lower lobe crackles. Cardiovascular/Chest: Regular rate and rhythm. No murmurs. No JVD. Peripheral Pulses: 2+ Radial (R). 2+ Radial (L). 2+ Pedal (R). 2+ Pedal (L) Abdominal Exam: Normal bowel sounds. Soft. Nontender. No hepatospenomegaly. No masses Ankle Exam: Negative ankle edema Lower extremities: Negative lower extremity edema Neuro/Mental Status: A&O x4. Coherent Thoughts/Psych: Normal thought pattern. Appropriate mood and affect. Good judgement and insight Appearance: In no acute distress Skin Exam: Normal inspection. Normal color. Warm. 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 Caro -continue IV Lasix 40 mg daily. Urine output 1400 and last 24 hours. Cumulative positive IV fluid balance at 2230 mL. -Continue heart failure meds per Cardiology slight fluctuation in renal function is acceptable with GDMT 1. Blood pressure management: Target blood pressure less than 130/80 mmHg. Currently on isosorbide mononitrate 60 mg p.o. daily, carvedilol 12.5 mg p.o. q.12. Lasix 40 mg p.o. daily. 2. Diabetic management: HGB A1c 6.9 on 05/02/2024. On insulin sliding scale. 3. Heart failure management: Cardiology on board, initiate GDM T as toleration. 4. Monitor kidney function including serum creatinine, GFR, urine albumin creatinine ratio to assess CKD progression. Recommend outpatient nephrology follow after discharge. 5. Echocardiogram 04/12/2024 showed 20% ejection fraction, anterior, anteroseptal and anterolateral wall akinesia. Grade 1 diastolic dysfunction. 6. Recommend low-sodium diet less than 2 g per day, fluid restriction less than 1.2 L per day 7. SGLT2 inhibitors can provide dual benefits for diabetes and kidney protection and HF. 8. Advised on medication adherence with heart failure and hypertensive medication. Addendum Patient seen and examined, plan discussed with resident. Agree with above, we will follow closely Plan discussed with: Patient, Other (RN) SHANAE RIDLEY RESIDENT Jul 08, 2024 11:27 ERMELINDA CARO MD Jul 08, 2024 14:41
--- NOTE | 2024-07-08 11:42 | DVHPN2 ---
Subjective The patient is seen and examined at bedside. Complain of shortness a breath but no chest pain today. Waiting for the LifeVest Reviewed: Care Plan, H&P, Labs, Medications, Previous Orders, Radiology Changes from previous H/P or p: No Changes Objective Vitals Vital Signs Date Time Temp Pulse Resp B/P (MAP) Pulse Ox O2 Delivery O2 Flow Rate FiO2 07/08/24 08:41 97.4 66 19 127/66 (86) 91 97.4 07/07/24 20:00 Nasal Cannula* 3 32 Intake/Output Intake and Output 07/08/24 07:00 Intake Total 1080 ml Output Total 1400 ml Balance -320 ml Intake Oral 780 ml IV Total 300 ml Output Urine Total 1400 ml # Voids 3 # Bowel Movements 1 General Appearance: Alert, Cooperative, No acute distress HEENT: Atraumatic, PERRLA, EOMI, Mucous membr. moist/pink Neck: Supple Lungs: Clear to auscultation, Normal air movement Cardiovascular: Regular rate, Normal S1, Normal S2, No murmurs, Gallops, Rubs Abdomen: Normal bowel sounds, Soft, No tenderness Neuro: Cranial nerves 3-12 NL Psych/Mental Status: Mental status NL Medications Current Medications Medications Dose Ordered Sig/Shan Route Start Time Stop Time Status Last Admin Dose Admin Ceftriaxone Sodium 50 ml @ 100 mls/hr DAILY@1900 IV 07/05/24 19:00 07/07/24 18:36 100 MLS/HR Azithromycin 250 ml @ 125 mls/hr DAILY@1900 IV 07/05/24 19:00 07/07/24 19:07 125 MLS/HR Atorvastatin Calcium 40 mg HS PO 07/05/24 22:00 07/07/24 21:40 40 MG Albuterol 2.5 mg Q6HPRN PRN NEB 07/05/24 05:00 07/07/24 11:46 2.5 MG Ondansetron HCl 4 mg Q4HP PRN IV 07/05/24 05:00 Enoxaparin Sodium 30 mg DAILY SC 07/05/24 10:00 07/07/24 11:04 30 MG Acetaminophen 650 mg Q6HP PRN PO 07/05/24 05:00 Nitroglycerin 0.4 mg Q5MINP PRN SL 07/05/24 05:00 Morphine Sulfate 2 mg Q30M PRN IV 07/05/24 05:00 Hydralazine HCl 10 mg Q6HP PRN IV 07/05/24 08:30 07/07/24 21:41 10 MG Carvedilol 12.5 mg Q12HR PO 07/05/24 22:00 07/08/24 00:48 12.5 MG Diagnostic Test (Pha) 1 strip ACHS 07/05/24 17:00 07/08/24 06:12 1 STRIP Insulin Human Regular HS SC 07/05/24 22:00 07/07/24 21:40 2 UNITS Insulin Human Regular AC SC 07/05/24 17:00 07/08/24 06:13 3 UNITS Dextrose 50 ml UD PRN IV 07/05/24 16:15 Isosorbide Mononitrate 60 mg DAILY PO 07/07/24 10:00 Furosemide 40 mg DAILY IV 07/08/24 10:00 Laboratory Results Laboratory Tests 07/06/24 05:21 07/08/24 09:10 Chemistry Test 07/08/24 09:10 Calcium Level 9.7 mg/dL (8.7-10.4) Urinalysis Test 07/04/24 17:03 Urine Color Yellow (Yellow) Urine Clarity Turbid (Clear) H Urine pH 6.0 (5.0-9.0) Urine Specific [place] 1.023 (1.001-1.035) Urine Protein 1+ (Negative) H Urine Ketones 2+ (Negative) H Urine Blood Negative /uL (Negative) Urine Nitrite 1+ (Negative) H Urine Bilirubin Negative (Negative) Urine Urobilinogen 2 mg/dL (Negative) H Urine Leukocyte Esterase 3+ /uL (Negative) Urine RBC 6 /hpf (0 - 3) Urine WBC 568 /hpf (0 - 3) Urine Squamous Epithelial Cells None seen /hpf (<5) Urine Bacteria Few /hpf (None Seen) H Urine Mucus Few (None Seen) Urine Glucose Normal mg/dL (Normal) Labs and/or images reviewed: Labs reviewed by me Assessment/Plan Assessment/Plan Community-acquired pneumonia possible secondary to Gram-positive bacteria pneumonia Sepsis due to pneumonia Elevated troponin secondary to non ST elevation MD type 2 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 Continuing with IV antibiotic Rocephin and Zithromax. We will follow up with culture. Rattle Leak And Squeak Repairer's input appreciated. According to manufacturing maintenance mechanic the patient need LifeVest for list three months and re-evaluate of his heart failure. Waiting for the life vest fitting. Continuing with isosorbide mononitrate, Coreg, and statin. Continuing with oxygen support. Continuing with sliding scale insulin and other hypertensive medication. Continuing to follow up with culture. Continuing with Lasix. Plan discussed with: Patient, Daughter Date of Service: Jul 08, 2024 Billing Provider: PATRICK VERDIN MD Common Visit Codes: [id number] INP/OBS CARE(HIGH) PATRICK VERDIN MD Jul 08, 2024 11:42
[2024-07-09] VITALS (10 sets, daily range): BP systolic 115–144; BP diastolic 39–65; PULSE 53–81; RESP 16–18; TEMP 36.7; O2SAT 95–99
--- NOTE | 2024-07-09 09:32 | DVH ---
CHEST RADIOGRAPH Indication: pnemumonia and chf Technique: Single frontal view of the chest was obtained COMPARISON: XY CHEST PORTABLE on DOS: 07/04/24, XY CHEST PORTABLE on DOS: 05/01/24, XY CHEST XRAY 1 EW on DOS: 04/09/24 FINDINGS: Lines and Tubes: None Lungs: Mild congestion Pleura: No effusion. No pneumothorax. Cardiomediastinal contours: Unremarkable Bones: Unremarkable IMPRESSION: Mild congestion
[2024-07-09] MEDS: FUROSEMIDE 40 MG/4 ML VIAL IV SCH (11:05)
[2024-07-09] MEDS ORDERED: ISO60SRT PO (11:17)
--- NOTE | 2024-07-09 11:19 | DVHDS2 ---
Discharge Summary Date of Admission Jul 05, 2024 at 04:51 Date of Discharge: Jul 09, 2024 Admitting Diagnosis Community-acquired pneumonia Elevated troponin rule out NSTEMI CHF Hypertension Diabetes mellitus UTI Chronic kidney disease Labs/Diagnostic Data: Laboratory Results Test 07/09/24 06:13 07/08/24 09:10 07/06/24 05:21 07/05/24 06:40 POC Glucose 151 mg/dl (70-106) Sodium Level 142 mmol/L (136-145) Potassium Level 4.1 mmol/L (3.5-5.1) Chloride Level 103 mmol/L (98-107) Carbon Dioxide Level 33 mmol/L (20-31) Anion Gap 6 (5-15) Blood Urea Nitrogen 40 mg/dL (9-23) Creatinine 1.97 mg/dL (0.700-1.30) Glomerular Filtration Rate Calc 34 mL/min (>90) BUN/Creatinine Ratio 20.3 (10.0-20.0) Serum Glucose 254 mg/dL (74-106) Calcium Level 9.7 mg/dL (8.7-10.4) White Blood Count 16.4 10^3/uL (4.4-10.8) Red Blood Count 3.91 10^6/uL (4.5-5.90) Hemoglobin 12.0 g/dL (13.5-17.5) Hematocrit 35.3 % (41.0-53.0) Mean Corpuscular Volume 90.5 fL (80.0-100.0) Mean Corpuscular Hemoglobin 30.7 pg (28.0-32.0) Mean Corpuscular Hemoglobin Concent 34.0 g/dL (32.0-36.0) Red Cell Distribution Width 16.4 % (11.8-14.3) Platelet Count 318 10^3/uL (140-450) Mean Platelet Volume 7.8 fL (6.9-10.8) Neutrophils (%) (Auto) 78.3 % (37.0-80.0) Lymphocytes (%) (Auto) 12.7 % (10.0-50.0) Monocytes (%) (Auto) 8.3 % (0.0-12.0) Eosinophils (%) (Auto) 0.4 % (0.0-7.0) Basophils (%) (Auto) 0.3 % (0.0-2.0) Neutrophils # (Auto) 12.8 10 ^3/uL (1.6-8.6) Lymphocytes # (Auto) 2.1 10 ^3/uL (0.4-5.4) Monocytes # (Auto) 1.4 10 ^3/uL (0-1.3) Eosinophils # (Auto) 0.1 10 ^3/uL (0-0.8) Basophils # (Auto) 0.1 10 ^3/uL (0-0.2) Nucleated Red Blood Cells 0.0 % Influenza Type A Antigen Negative (Negative) Influenza Type B Antigen Negative (Negative) SARS-CoV-2 Antigen (Rapid) Negative (NEGATIVE) Test 07/05/24 05:00 07/04/24 22:06 07/04/24 20:07 07/04/24 17:03 D-Dimer, Quantitative 1.97 mg/L FEU (0.0-0.49) Magnesium Level 2.1 mg/dL (1.6-2.6) B-Type Natriuretic Peptide 571.38 pg/mL (0-100) Lactic Acid Level 1.7 mmol/L (0.4-2.0) Troponin I High Sensitivity 102 ng/L (</=54) Urine Color Yellow (Yellow) Urine Clarity Turbid (Clear) Urine pH 6.0 (5.0-9.0) Urine Specific [place] 1.023 (1.001-1.035) Urine Protein 1+ (Negative) Urine Ketones 2+ (Negative) Urine Blood Negative /uL (Negative) Urine Nitrite 1+ (Negative) Urine Bilirubin Negative (Negative) Urine Urobilinogen 2 mg/dL (Negative) Urine Leukocyte Esterase 3+ /uL (Negative) Urine RBC 6 /hpf (0 - 3) Urine WBC 568 /hpf (0 - 3) Urine Squamous Epithelial Cells None seen /hpf (<5) Urine Bacteria Few /hpf (None Seen) Urine Mucus Few (None Seen) Urine Glucose Normal mg/dL (Normal) Test 07/04/24 16:38 Total Bilirubin 1.5 mg/dL (0.2-1.0) Aspartate Amino Transferase (AST) 31 U/L (13-40) Alanine Aminotransferase (ALT) 27 U/L (7-40) Alkaline Phosphatase 144 U/L (46-116) Total Protein 6.7 g/dL (5.7-8.2) Albumin 4.4 g/dL (3.2-4.8) Other Laboratory Tests 07/08/24 09:10 07/06/24 05:21 Brief Hx & Hospital Course: . This is a 78 years old male come to emergency department because of chest pain, cough, subjective fever, chills and also yellowish phlegm for four days. The patient apparently had chronic respiratory failure, COPD, patient is on home oxygen 2 L nasal cannula. The patient said lately the oxygen did not help him. He also complained of chest pain localized to the epigastric area and radiated to the left shoulder. He also had dyspnea on exertion. He had a 12 lead EKG done in emergency department showed left bundle branch block. Troponin level elevated at 105 in the emergency department. His blood pressure also is not controlled with systolic blood pressure on arrival in the 190s. Patient does have a nonischemic cardiomyopathy with echo done recently in March 2024 showed EF of 20% and paroxysmal atrial fibrillation. Patient also had recent GI bleed so no anticoagulation because severe GI bleed recently. The patient was started on isosorbide mononitrate, Coreg, amlodipine and statin. The patient was seen by drilling fluids specialist. Visitor Services Technician recommend LifeVest for three months and re- evaluate to see if the patient needs further intervention for his cardiomyopathy and congestive heart failure. The patient also was found to have sepsis due to Gram-positive bacteria. The patient was treated with IV Rocephin and Zithromax. The patient also received nebulizer. Kidney function was monitor and Nephrology was consulted. The patient is supposed to follow up with hydraulic dredge operator as outpatient. The patient had a LifeVest delivery today. The patient had no chest pain or shortness for breath. I am going to discharge the patient home. Advised the patient to follow up with primary care physician 1-2 weeks. Follow up with drilling fluids specialist per schedule. Activity as tolerated. Diet low-salt low-cholesterol 2000 ADA calorie diet. Physical exam: HEENT: Normocephalic atraumatic pupils equal react to light and accommodation. Extraocular muscles intact, conjunctiva pink, oropharynx moist, no thrush, no exudate. Lymphatic: No lymphadenopathy Cardiovascular exam: S1, S2 was heard. No murmurs, rubs, gallops Lung: Clear on auscultation bilaterally, no wheeze, rale, rhonchi. GI: Abdominal soft, nondistended, nontenderness, positive bowel sounds. Extremity: No crepitus, cyanosis, edema. Pedal pulses present bilateral. Full range of motion. Skin: Normal turgor, no rash. Psych: Alert, oriented x3. Neurology: No focal deficits, cranial nerve II to XII grossly intact. 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% Acute on chronic decompensated systolic heart failure Hypertension uncontrolled Paroxysmal atrial fibrillation COPD on home oxygen Chronic respiratory failure Diabetes mellitus UTI Acute kidney injury superimposed on Chronic kidney disease stage III Discharge Disposition: Home Discharge Instruct/Medications Diet: Cardiac 2g Na,low cholest Activity: No Restrictions, As Tolerated Follow Up/Referral: pcp 1-2 weeks drilling fluids specialist per schedule Law Reporter per schedule Medications: Resume home meds discontinue amlodipine Isosobide 60mg daily Discharge Statement: "Patient was advised to return to the ER or call 911 if any headaches, dizziness, shortness of breath, chest pain, abdominal pain, bleeding, fevers, or worsening of medical condition. Patient was counseled about treatment plan, medications, possible side effects, patientverbalized understanding. All questions were answered to the best of my ability. This discharge took greater then 30 minutes in planning, reviewing documentation, counseling the patient, and discussing with other team members." ASSESSMENT ASSESSMENT Assessment PNA CHF Date of Service: Jul 09, 2024 Billing Provider: PATRICK VERDIN MD Common Visit Codes: [id number] DISCH DAY >30min PATRICK VERDIN MD Jul 09, 2024 11:19
--- NOTE | 2024-07-09 13:15 | DVHPN2 ---
Progress Note Date Seen: Jul 09, 2024 Resident Creating Document: SHANAE RIDLEY RESIDENT Medical Necessity Reason Pt with a Central, PICC or Fol: No Subjective Review of Systems This is a 78-year-old male, [place]yanese-speaking, poor historian with past medical history of hypertension, CAD with PTCA stent placement, COPD with home oxygen 3L, type 2 diabetes mellitus, asthma, prostate cancer presented to the ED with chief complaint of chest pain associated with shortness of breath, cough, increased sputum production and fever for past 4-5 days. Patient also had associated yellowish sputum production. Patient use home oxygen 3.5 L via nasal cannula. Nephrology consultation was done for acute kidney injury. Patient denying any other symptoms at this point including generalized weakness, sensory deficits, motor weakness, fever, chills, urinary symptoms including urine increased frequency, burning micturition, any other symptoms. Past Medical History hypertension, CAD with PTCA stent placement, COPD with home oxygen 3L, type 2 diabetes mellitus, asthma, prostate Past Surgical History PTCA, prostate surgery Patient is seen and examined at bedside. No other complaints. Objective vital signs Vital Sign Date Time Temp Pulse Resp B/P (MAP) Pulse Ox O2 Delivery O2 Flow Rate FiO2 07/09/24 11:05 137/63 07/09/24 11:02 61 07/09/24 09:00 98.1 16 98 98.1 07/09/24 07:12 Nasal Cannula* 2 28 Total Intake and Output 07/08/24 07/08/24 07/09/24 15:00 23:00 07:00 Intake Total 400 ml 875 ml Output Total 360 ml 300 ml Balance 40 ml 575 ml medications Current Medications Medications Dose Ordered Sig/Shan Route Start Time Stop Time Status Last Admin Dose Admin Ceftriaxone Sodium 50 ml @ 100 mls/hr DAILY@1900 IV 07/05/24 19:00 07/08/24 17:42 100 MLS/HR Azithromycin 250 ml @ 125 mls/hr DAILY@1900 IV 07/05/24 19:00 07/08/24 22:29 125 MLS/HR Atorvastatin Calcium 40 mg HS PO 07/05/24 22:00 07/08/24 22:28 40 MG Albuterol 2.5 mg Q6HPRN PRN NEB 07/05/24 05:00 07/07/24 11:46 2.5 MG Ondansetron HCl 4 mg Q4HP PRN IV 07/05/24 05:00 Enoxaparin Sodium 30 mg DAILY SC 07/05/24 10:00 07/09/24 11:06 30 MG Acetaminophen 650 mg Q6HP PRN PO 07/05/24 05:00 Nitroglycerin 0.4 mg Q5MINP PRN SL 07/05/24 05:00 Morphine Sulfate 2 mg Q30M PRN IV 07/05/24 05:00 Hydralazine HCl 10 mg Q6HP PRN IV 07/05/24 08:30 07/07/24 21:41 10 MG Carvedilol 12.5 mg Q12HR PO 07/05/24 22:00 07/09/24 11:02 12.5 MG Diagnostic Test (Pha) 1 strip ACHS 07/05/24 17:00 07/09/24 12:53 1 STRIP Insulin Human Regular HS SC 07/05/24 22:00 07/08/24 22:37 4 UNITS Insulin Human Regular AC SC 07/05/24 17:00 07/09/24 06:22 3 UNITS Dextrose 50 ml UD PRN IV 07/05/24 16:15 Isosorbide Mononitrate 60 mg DAILY PO 07/07/24 10:00 07/09/24 11:03 60 MG Furosemide 20 mg DAILY IV 07/09/24 10:00 07/09/24 11:05 20 MG Examination General Appearance: Cooperative. Well developed. Well nourished. NAD Head Exam: Normal inspection Neck Exam: Normal inspection. Non-tender. Normal alignment Pulmonary/Respiratory: Chest non-tender. Left lower lobe crackles. Cardiovascular/Chest: Regular rate and rhythm. No murmurs. No JVD. Peripheral Pulses: 2+ Radial (R). 2+ Radial (L). 2+ Pedal (R). 2+ Pedal (L) Abdominal Exam: Normal bowel sounds. Soft. Nontender. No hepatospenomegaly. No masses Ankle Exam: Negative ankle edema Lower extremities: Negative lower extremity edema Neuro/Mental Status: A&O x4. Coherent Thoughts/Psych: Normal thought pattern. Appropriate mood and affect. Good judgement and insight Appearance: In no acute distress Skin Exam: Normal inspection. Normal color. Warm. 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 Salas -Hold IV Lasix, patient can be discharged home whenever clinically stable with 20 mg p.o. b.i.d. Lasix. -Continue heart failure meds per Cardiology slight fluctuation in renal function is acceptable with GDMT 1. Blood pressure management: Target blood pressure less than 130/80 mmHg. Currently on isosorbide mononitrate 60 mg p.o. daily, carvedilol 12.5 mg p.o. q.12. Lasix 40 mg p.o. daily. 2. Diabetic management: HGB A1c 6.9 on 05/02/2024. On insulin sliding scale. 3. Heart failure management: Cardiology on board, initiate GDM T as toleration. 4. Monitor kidney function including serum creatinine, GFR, urine albumin creatinine ratio to assess CKD progression. Recommend outpatient nephrology follow after discharge. 5. Echocardiogram 04/12/2024 showed 20% ejection fraction, anterior, anteroseptal and anterolateral wall akinesia. Grade 1 diastolic dysfunction. 6. Recommend low-sodium diet less than 2 g per day, fluid restriction less than 1.2 L per day 7. SGLT2 inhibitors can provide dual benefits for diabetes and kidney protection and HF. 8. Advised on medication adherence with heart failure and hypertensive medication. -we will continue following up closely. Plan discussed with: Patient, Other My Orders My Orders Orders - SHANAE RIDLEY Procedure Category Date Status Time Chest Xray 1 View XY 07/09/24 Resulted 08:21 SHANAE RIDLEY RESIDENT Jul 09, 2024 13:15
== END 2024-07-09 20:14 | disposition home or self-care (01) | DRG 720 ==
LOC: ER 16:32 → TELE-WESTW 07-05 04:51 → TELE 07-05 04:51 → TELE-WESTW 07-05 09:11
PROVIDERS: ADMIT Nurse Practitioner; ATTEND Internal Medicine
DX: A41.9 Sepsis, unspecified organism (principal); N17.0 Acute kidney failure with tubular necrosis; I50.23 Acute on chronic systolic (congestive) heart failure; I21.A1 Myocardial infarction type 2; J15.69 Pneumonia due to other Gram-negative bacteria; I42.0 Dilated cardiomyopathy; I13.0 Hypertensive heart and chronic kidney disease with heart failure and stage 1 through stage 4 chronic kidney disease, or unspecified chronic kidney disease; J15.9 Unspecified bacterial pneumonia; J44.0 Chronic obstructive pulmonary disease with (acute) lower respiratory infection; Z20.822 Contact with and (suspected) exposure to COVID-19; E11.22 Type 2 diabetes mellitus with diabetic chronic kidney disease; N39.0 Urinary tract infection, site not specified; I16.0 Hypertensive urgency; I48.0 Paroxysmal atrial fibrillation; N18.32 Chronic kidney disease, stage 3b; I25.10 Atherosclerotic heart disease of native coronary artery without angina pectoris; E78.5 Hyperlipidemia, unspecified; Z99.81 Dependence on supplemental oxygen; Z98.61 Coronary angioplasty status; Z90.49 Acquired absence of other specified parts of digestive tract; Z87.891 Personal history of nicotine dependence; Z79.84 Long term (current) use of oral hypoglycemic drugs; Z85.46 Personal history of malignant neoplasm of prostate; Z82.49 Family history of ischemic heart disease and other diseases of the circulatory system
CPT/HCPCS: 36415; 36600; 71045; 80048; 80053; 81001; 82805; 82962; 83605; 83735; 83880; 84484; 85025; 85379; 87426; 87804; 93005; 94640; 96365; 96375; 99291; G0378; J1815

== ENCOUNTER 2024-08-24 11:43 | Emergency (ER) | payer MEDICAID ==
[~2024-08-24] VITALS: Ht 172.7 cm; Wt 86.0 kg
[~2024-08-24 11:43] MED LIST changes: -AMLO1TAB22 PO; -ASPI-628 PO; -ATOR20TA PO; -DOXY100C79 PO; -FURO20TA4 PO; +ISO60SRT PO
[2024-08-24 11:55] VITALS: BP 115/86
[2024-08-24] MEDS: ACETAMINOPHEN 325 MG TAB PO ONE (12:15)
--- NOTE | 2024-08-24 12:42 | ED.PDOC ---
History of Present Illness HPI Comments 78 yo male here with his son with c/o 5 day history of cough, body aches, tactile fevers. at home has identical symptoms. Multiple friends with same. Has not tried any meds at home. On 3L O2 NC chronically for COPD. Walked into the ER without assistance. No other complaints. Chief Complaint: Flu like Time Seen by MD: 11:55 Primary Care Provider: UNKNOWN Allergies: Coded Allergies: NO KNOWN ALLERGIES (Unverified , 01/12/24) Home Meds Active Scripts Isosorbide Mononitrate (Isosorbide Mononitrate ER) 60 Mg Tab, 60 MG PO DAILY, #90 TAB 3 Refills Prov:PATRICK VERDIN MD 07/09/24 Potassium Chloride (POTASSIUM CHLORIDE CR) 10 Meq Tb, 1 TAB PO DAILY, #90 TAB 1 Refill Prov:MOUNIKA GALLO MD 04/13/24 Carvedilol (COREG) 3.125 Mg Tab, 3.125 MG PO BID, #180 TAB Prov:MOUNIKA GALLO MD 04/13/24 Furosemide (Lasix) 40 Mg Tab, 40 MG PO DAILY, #90 TAB Prov:MOUNIKA GALLO MD 04/13/24 Pantoprazole Sodium Sesquihydr (Pantoprazole Sodium) 40 Mg Tab, 40 MG PO DAILY for 30 Days, #30 TAB Prov:SANDOVAL JEAN RESIDENT 02/03/24 Umeclidinium-Vilanterol (Anoro Ellipta 62.5-25 Mcg/INH) 1 Aer Aer, 1 AER IN DAILY for 30 Days, AER Prov:SANDOVAL JEAN RESIDENT 02/03/24 Reported Medications Losartan Potassium (Losartan Potassium) 50 Mg Tab, 50 MG PO DAILY for 30 Days, MG 04/11/24 Fluticasone Furoate-Vilanterol (Fluticasone Furoate/Vilan 200-25 Mcg/Act) 1 Inh Inh, 1 PUFF INH DAILY 04/10/24 Sacubitril-Valsartan (Entresto 24-26 mg) 1 Tab Tab, 1 TAB PO BID 04/10/24 Lidocaine (Ztlido) 1.8 % Pad, 1 PATCH DAILY 04/10/24 Ferrous Sulfate (Ferosul) 325 Mg Tab, 1 TAB PO DAILY 04/10/24 Aspirin (Aspirin Ec) 81 Mg Tab, 1 TAB PO DAILY 04/10/24 Atorvastatin Calcium (ATORVASTATIN CALCIUM) 40 Mg Tab, 1 TAB PO QPM 04/10/24 Metoprolol Succinate (Metoprolol Succinate Er) 25 Mg Tab, 1 TAB PO DAILY 04/10/24 Information Source: Patient, Relative (Child) Mode of Arrival: Ambulatory Severity: Mild Timing: Days Duration: Since onset Prehospital treatment: None Past Medical History PAST MEDICAL HISTORY: Asthma, CAD, Cancer, DM, High Lipids, HTN Surgical History: Appendectomy, PTCA Family History Family History: Unknown Social History Smoker: Non-Smoker, Quit Less Than 1 Year Alcohol: Denies ETOH Use Drugs: Denies Drug Use Lives In: Home Constitutional: reports: fever EENTM: denies: blurred vision, double vision, ear bleeding, ear discharge, ear drainage, ear pain, ear ringing, eye pain, eye redness, hearing loss, mouth pain, mouth swelling, nasal discharge, nose bleeding, nose congestion, nose pain, photophobia, tearing, throat pain, throat swelling, voice changes, others Respiratory: reports: cough; denies: hemoptysis, orthopnea, SOB at rest, shortness of breath, SOB with excertion, stridor, wheezing, others Cardiovascular: denies: chest pain, dizzy spells, diaphoresis, Dyspnea on exertion, edema, irregular heart beat, left arm pain, lightheadedness, palpitations, PND, syncope, others Gastrointestinal: denies: abdomen distended, abdominal pain, blood streaked bowels, constipated, diarrhea, dysphagia, difficulty swallowing, hematemesis, melena, nausea, poor appetite, poor fluid intake, rectal bleeding, rectal pain, vomiting, others Genitourinary: denies: burning, dysuria, flank pain, frequency, hematuria, incontinence, penile discharge, penile sore, pain, testicle pain, testicle swelling, urgency, others Neurological: denies: dizziness, fainting, headache, left sided numbness, left sided weakness, numbness, paresthesia, pre-existing deficit, right sided numbness, right sided weakness, seizure, speech problems, tingling, tremors, weakness, others Musculoskeletal: denies: back pain, gout, joint pain, joint swelling, muscle pain, muscle stiffness, neck pain, others Allergic/Immunocompromised: denies: Difficulty Healing, Frequent Infections, Hives, Itching, others Psychiatric: denies: anxiety, bipolar disorder, depression, hopeless, panic disorder, schizophrenia, sleepless, suicidal, others All Other Systems: Reviewed and Negative Physical Exam General Appearance: No Apparent Distress, Normal, Other (ambulated into the ER without assitance while pulling O2 tank behind him) HEENT: Normal ENT Inspection, PERRL/EOMI, Pharyngeal Erythema, TMs Normal, Other (no pharyngeal exudate) Neck: Full Range of Motion, Non-Tender, Normal, Normal Inspection Respiratory: Chest Non-Tender, No Accessory Muscle Use, No Respiratory Distres s, Other (scattered rhonchi, intermittent productive cough during my exam) Cardiovascular: No Edema, Normal Peripheral Pulses, Regular Rate/Rhythm Breast Exam: Deferred Gastrointestinal: Non Tender, Normal Bowel Sounds, Soft Genitalia: Deferred Pelvic: Deferred Rectal: Deferred Extremities: No calf tenderness, Normal capillary refill, Normal inspection, No rmal range of motion, Non-tender, No pedal edema Musculoskeletal : Apperance: Normal Neurologic: Alert, No Motor Deficits, Normal Affect, Normal Mood, No Sensory Deficits, Other (ambulates without assitance) Cerebellar Function: Normal Reflexes: NOT DONE Skin: Dry, Normal Color, Warm Lymphatic: NOT DONE Was a procedure done? Was a procedure done?: No Differential Dx Considerations may include: pneumonia, pneumothorax, viral URI, COPD exacerbation X-Ray, Labs, Meds, VS Vital Signs Date Time Temp Pulse Resp B/P (MAP) Pulse Ox O2 Delivery O2 Flow Rate FiO2 08/24/24 12:01 96 3.0 08/24/24 11:55 99.8 84 17 115/86 (96) 96 Lab Test 08/24/24 13:13 Range/Units White Blood Count 7.6 4.4-10.8 10^3/uL Red Blood Count 4.47 L 4.5-5.90 10^6/uL Hemoglobin 13.9 13.5-17.5 g/dL Hematocrit 41.6 41.0-53.0 % Mean Corpuscular Volume 93.2 80.0-100.0 fL Mean Corpuscular Hemoglobin 31.1 28.0-32.0 pg Mean Corpuscular Hemoglobin Concent 33.4 32.0-36.0 g/dL Red Cell Distribution Width 15.2 H 11.8-14.3 % Platelet Count 202 140-450 10^3/uL Mean Platelet Volume 7.4 6.9-10.8 fL Neutrophils (%) (Auto) 59.3 37.0-80.0 % Lymphocytes (%) (Auto) 12.7 10.0-50.0 % Monocytes (%) (Auto) 16.6 H 0.0-12.0 % Eosinophils (%) (Auto) 10.8 H 0.0-7.0 % Basophils (%) (Auto) 0.6 0.0-2.0 % Neutrophils # (Auto) 4.5 1.6-8.6 10 ^3/uL Lymphocytes # (Auto) 1.0 0.4-5.4 10 ^3/uL Monocytes # (Auto) 1.3 0-1.3 10 ^3/uL Eosinophils # (Auto) 0.8 0-0.8 10 ^3/uL Basophils # (Auto) 0 0-0.2 10 ^3/uL Nucleated Red Blood Cells 0.0 % Sodium Level 140 136-145 mmol/L Potassium Level 3.9 3.5-5.1 mmol/L Chloride Level 104 98-107 mmol/L Carbon Dioxide Level 29 20-31 mmol/L Anion Gap 7 5-15 Blood Urea Nitrogen 20 9-23 mg/dL Creatinine 1.56 H 0.700-1.30 mg/dL Glomerular Filtration Rate Calc 45 >90 mL/min BUN/Creatinine Ratio 12.8 10.0-20.0 Serum Glucose 112 H 74-106 mg/dL Calcium Level 10.0 8.7-10.4 mg/dL X-Ray, Labs, Meds, VS Comment 78 yo male w notable history of COPD on 3L NC chronically here w presentation concerning for COPD exacerbation vs viral URI. Doubt pneumonia given no focal consoldiation on CXR, no significant leukocytosis, no true fever. Doubt pneumothorax given no e/o such on CXR. I sent an rx for antibiotics to patient's preferred pharmacy and provided strict instructions to f/u with his pmd in 2-3 days for reeval which the daughter confirmed he will do. No significant resp distress. Ambulating without assistance. Provided strict return precautions for shortness of breath, fever, PO intolerance, chest pain, or any other pain or symptoms. PAtient and family at bedside expressed understanding, patient was discharged home in stable condition. Images Reviewed?: Images reviewed and evaluated by me Time of 1ST Reevaluation: 13:43 Reevaluation 1ST: Improved Patient Education/Counseling: Diagnosis, Treatment, Prognosis, Need For Follow Up Family Education/Counseling: Diagnosis, Treatment, Prognosis, Need For Follow Up Departure 1 Departure Time of Disposition: 14:43 Impression: Primary Impression: COPD exacerbation Additional Impression: History of home oxygen therapy Disposition: 01 HOME / SELF CARE / HOMELESS Condition: Stable e-Prescriptions Amoxicillin & Pot Clavulanate (AUGMENTIN TABLET) 875 Mg Tb 875 MG PO BID for 10 Days, #20 TAB Prov: GARY HAMMER MD 08/24/24 Discharged With: Relative (son/daughter) Critical Care Note Critical Care Time?: No Stability Stability form required: No GARY HAMMER MD Aug 24, 2024 12:42
--- NOTE | 2024-08-24 13:00 | DVH ---
CHEST RADIOGRAPH Indication: cough Technique: Single frontal view of the chest was obtained Comparison: XY CHEST XRAY 1 VIEW on DOS: 07/09/24 FINDINGS: Lines and Tubes: None Lungs: Bilateral interstitial prominence. Pleura: No effusion. No pneumothorax. Cardiomediastinal contours: Unremarkable Bones: No acute osseous abnormality. IMPRESSION: 1. Pulmonary vascular congestion.
[2024-08-24 13:43] LABS: Basophils # (auto) 0 10 ^3/uL (0-0.2); Basophils % (auto) 0.6 % (0.0-2.0); Eosinophils # (auto) 0.8 10 ^3/uL (0-0.8); Eosinophils % (auto) 10.8 % (0.0-7.0); Hematocrit 41.6 % (41.0-53.0); Hemoglobin 13.9 g/dL (13.5-17.5); Lymphocytes % (auto) 12.7 % (10.0-50.0); Mean Corpuscular Hemoglobin 31.1 pg (28.0-32.0); Mean Corpuscular Hgb Conc. 33.4 g/dL (32.0-36.0); Mean Corpuscular Volume 93.2 fL (80.0-100.0); Monocytes # (auto) 1.3 10 ^3/uL (0-1.3); Monocytes % (auto) 16.6 % (0.0-12.0); Neutrophils # (auto) 4.5 10 ^3/uL (1.6-8.6); Neutrophils % (auto) 59.3 % (37.0-80.0); Platelet Count (auto) 202 10^3/uL (140-450); Red Blood Cells 4.47 10^6/uL (4.5-5.90); Red Cell Distribution Width 15.2 % (11.8-14.3); White Blood Cell 7.6 10^3/uL (4.4-10.8)
[2024-08-24 13:55] LABS: Chloride 104 mmol/L (98-107); Potassium 3.9 mmol/L (3.5-5.1); Sodium 140 mmol/L (136-145)
[2024-08-24 13:56] LABS: Anion Gap 7 (5-15); Carbon Dioxide 29 mmol/L (20-31)
[2024-08-24 14:01] LABS: BUN/Creatinine Ratio 12.8 (10.0-20.0); Blood Urea Nitrogen 20 mg/dL (9-23)
[2024-08-24 14:05] LABS: Glucose 112 mg/dL (74-106)
[2024-08-24] MEDS ORDERED: AUG875T PO (14:49)
[2024-08-24 15:43] VITALS: PULSE 80; RESP 16; TEMP 98.7; O2SAT 95
== END 2024-08-24 15:44 | disposition home or self-care (01) ==
LOC: ER 11:43
DX: J44.1 Chronic obstructive pulmonary disease with (acute) exacerbation (principal); E11.9 Type 2 diabetes mellitus without complications; E78.5 Hyperlipidemia, unspecified; I10 Essential (primary) hypertension; Z90.89 Acquired absence of other organs; Z98.890 Other specified postprocedural states; Z79.899 Other long term (current) drug therapy; Z79.84 Long term (current) use of oral hypoglycemic drugs
CPT/HCPCS: 36415; 71045; 80048; 85025